=== PATIENT | female | born 1935 | race African-American/Black ===

== ENCOUNTER 2017-08-26 09:56 | Inpatient (IN) | payer OTHER, MEDICAID ==
[~2017-08-26] VITALS: Ht 167.6 cm; Wt 74.4 kg
[~2017-08-26 09:56] MED LIST: AMLO10TA PO; ATEN50TA2 PO; ATOR40TA PO; BENA10TA25 PO; CALC-741 PO; CEFT1PDS43 IV; FAMO-90 PO; HUM SUBQ; LANTUS; LANTUS SUBQ; MYCO250C PO; OMEP40EC1 PO; PRED5SYR3 PO; PROG1 PO; TRAM50TA1 PO
--- NOTE | 2017-08-26 09:56 | NUR ---
Patient BIBA BLS, transferred to bed 10. RN evaluating patient at bedside.
[2017-08-26 10:16] VITALS: BP 137/57
--- NOTE | 2017-08-26 10:47 | NUR ---
Dr. Alicea evaluating patient at bedside.
--- NOTE | 2017-08-26 10:47 | NUR ---
PATIENT PRESENTS TO ED VIA EMS AFTER C/O TO DAUGHTER GENERAL WEAKNESS, UNABLE TO AMBULATE . PT STATES SKIN IS PINK/WARM/DRY; AAOX4 LUNGS CLEAR BL; HR EVEN AND REGULAR; PT DENIES ANY FEVER, CP, SOB, PATIENT STATES PAIN OF 5/10 AT THIS TIME; VSS; PATIENT POSITIONED FOR COMFORT; HOB ELEVATED; BEDRAILS UP X2; BED DOWN. ER MD MADE AWARE OF PT STATUS.
--- NOTE | 2017-08-26 10:51 | NUR ---
MD AT BEDSIDE SPEAKING WITH PT AND DAUGHTER
[2017-08-26] MEDS ORDERED: PRED5TAB7 PO (10:59)
[2017-08-26] MEDS ORDERED: NACL 0.9% 500 ML IV SCH (10:59)
[2017-08-26] MEDS ORDERED: FLONAS NS (10:59)
[2017-08-26] MEDS ORDERED: ALBUTEROL SULFATE/IPRATROPIU 3 ML SOL IH ONE (11:00)
[2017-08-26] MEDS ORDERED: SLIDE SUBQ (11:00)
[2017-08-26] MEDS ORDERED: methylPREDNISolone SS 125 MG in WATER STERILE 2 ML IM ONE (11:00)
[2017-08-26] MEDS ORDERED: LEVOFLOXACIN 500 MG/D5W PREMIX 100 ML IV ONE (11:00)
--- NOTE | 2017-08-26 11:08 | NUR ---
LULY --DAUGHTER [phone]
--- NOTE | 2017-08-26 11:30 | NUR ---
RT AT BEDSIDE--COLLECTED ABG
--- NOTE | 2017-08-26 11:37 | NUR ---
BLOOD COLLECTED AND SENT TO LAB
[2017-08-26 12:24] LABS: HEMATOCRIT 36.9 % (36-48); HEMOGLOBIN 11.9 g/dL (12.0-16.0); MEAN CORPUSCULAR HEMOGLOBIN 27 pg (27-31); MEAN CORPUSCULAR HGB CONC 32 g/dL (33-37); MEAN CORPUSCULAR VOLUME 84 fL (80-94); PLATELET COUNT (AUTO) 185 K/uL (140-450); RED BLOOD CELL COUNT(AUTO) 4.38 MIL/uL (4.20-5.40); RED CELL DISTRIBUTION WIDTH 14.2 % (11.6-13.7); WHITE BLOOD COUNT (AUTO) 9.9 K/uL (4.8-10.8)
[2017-08-26 12:34] LABS: BILIRUBIN,URINE NEGATIVE (NEGATIVE); BLOOD, URINE 3+ (NEGATIVE); COLOR,URINE YELLOW (YELLOW); NITRITE, URINE POSITIVE (NEGATIVE); UGLUCOSE 3+ (NEGATIVE)
[2017-08-26 12:39] LABS: APPEARANCE,URINE CLOUDY (CLEAR)
[2017-08-26 12:41] LABS: RBC,URINE 3-10 (FEW) /HPF (0-5); WBC,URINE 6-15 (FEW) /HPF (0-5)
[2017-08-26 12:42] LABS: LEUKOCYTE ESTERASE ,URINE 1+ (NEGATIVE)
[2017-08-26 12:43] LABS: URINE AMORPHOUS URATE 1+ /HPF (None Seen)
[2017-08-26 12:49] LABS: ALBUMIN 2.3 g/dL (3.4-5.0); ANION GAP 18.2 (8-16); ASPARTATE AMINOTRANSFERASE 10 U/L (15-37); CARBON DIOXIDE 15.4 mmol/L (21-32); CHLORIDE 105 mmol/L (98-107); GLUCOSE 307 mg/dL (74-106); LYMPHOCYTES % (MANUAL) 4 % (20-46); MONOCYTES % (MANUAL) 8 % (5-12); POTASSIUM 4.6 mmol/L (3.5-5.1); SODIUM SERUM 134 mmol/L (136-145); TOTAL BILIRUBIN 0.3 mg/dL (0.0-1.0); UREA NITROGEN, BLOOD 30 mg/dL (7-18)
[2017-08-26] MEDS ORDERED: NACL 0.9% 1,000 ML IV ONE (13:15)
--- NOTE | 2017-08-26 14:00 | NUR ---
PT DENIES PAIN AT THIS TIME---AWAKE ALERT ADMITS SHE FEELS SICK--- PENDING ADMISSION--
[2017-08-26] MEDS: NACL 0.9% 1,000 ML IV SCH ×2 (14:39→21:18)
[2017-08-26] MEDS ORDERED: ACETAMINOPHEN 325 MG TAB PO PRN (14:40)
[2017-08-26] MEDS ORDERED: ALBUTEROL SULFATE/IPRATROPIU 3 ML SOL IH PRN (14:40)
[2017-08-26] MEDS ORDERED: DEXTROSE 50% 50 ML SYR IVP PRN (14:40)
[2017-08-26] MEDS ORDERED: HYDROcodone/APAP 7.5/325 MG 1 TAB PO PRN (14:40)
--- NOTE | 2017-08-26 15:09 | NUR ---
CONTINUES TO WAIT FOR AVAILABLE BED FOR ADMISSION----RESTING WITH OU CLOSED, NO S/S RESP DISTRESS AT THIS TIME
[2017-08-26 15:46] VITALS: BP 161/74
--- NOTE | 2017-08-26 15:59 | NUR ---
Pt transferred to Tele via IVÁN RM 119-B---REPORT GIVEN TO BEAU NAVA PT'S DAUGHTER WAS CALLED AND NOTIFIED OF PT'S CHANGE IN LOCATION
--- NOTE | 2017-08-26 16:00 | NUR ---
RECEIVED PATIENT REPORT AT BEDSIDE FROM ER NURSE. PATIENT IS AAOX3 AND SHOWS NO S/S OF ACUTE DISTRESS ON ROOM AIR. NOTED IV ON THE R FA 20G WITH IVF'S INFUSING WELL. NOTED OLD HEALED SCARS FROM PREVIOUS SURGERIES. BOLTON CATHETER IN PLACE WITH DARK KLEVER URINE. PATIENT DENIES PAIN. PATIENT WAS ORIENTED TO HOSPITAL ENVIRONMENT AND CALL LIGHT IS WITHIN REACH.
[2017-08-26] MEDS ORDERED: hePARIN / DEXT 5% PREMIX 250 ML IV SCH (16:15)
[2017-08-26] MEDS ORDERED: HEPARIN PER PHARMACY MC PRN (16:15)
[2017-08-26 17:07] LABS: CHOL/HDL RATIO 2.7 (1-4.5); FREE T4 (FREE THYROXINE) 1.19 ng/dL (0.76-1.46); MAGNESIUM 1.4 mg/dL (1.8-2.4); PHOSPHORUS 2.9 mg/dL (2.5-4.9); THYROID STIMULATING HORMONE 1.92 uIU/mL (0.34-3.74)
[2017-08-26] MEDS: BLOOD GLUCOSE MONITORING 1 DEV DEV FS SCH ×4 (17:15→23:12)
[2017-08-26] MEDS ORDERED: INSULIN HUMAN REGULAR 100 UNITS in NACL 0.9% 100 ML IV SCH (17:15)
[2017-08-26] MEDS: MYCOPHENOLATE 250 MG CAP PO SCH (17:28)
[2017-08-26] MEDS: INSULIN LISPRO SLIDING SCALE 100 UNITS/ML VIAL SUBQ PRN ×3 (17:32→23:13)
[2017-08-26] MEDS ORDERED: MAG SULF 2000 MG/WATER PREMIX 50 ML IV SCH (17:35)
[2017-08-26] MEDS: CLINDAMYCIN 600 MG in DEXTROSE 5% 50 ML IV SCH (17:44)
--- NOTE | 2017-08-26 17:45 | NUR ---
ADMINISTERED SCHEDULED MEDICATIONS. IV ABX INFUSING WELL. PATIENT BS IS 341, GAVE HUMALOG SLIDING SCALE OF 8 UNITS SQ. PATIENT TOLERATED WELL. PATIENT'S NEEDS MET AT THIS TIME. US TECH AT BEDSIDE.
[2017-08-26] MEDS ORDERED: ALBUTEROL SULFATE/IPRATROPIU 3 ML SOL IH SCH (18:00)
--- NOTE | 2017-08-26 18:00 | NUR ---
TX PATIENT TO ICU WITH DAVID NAVA.
[2017-08-26 18:16] LABS: ANION GAP 19.1 (8-16); CARBON DIOXIDE 15.7 mmol/L (21-32); CHLORIDE 105 mmol/L (98-107); GLUCOSE 375 mg/dL (74-106); POTASSIUM 5.8 mmol/L (3.5-5.1); SODIUM SERUM 134 mmol/L (136-145); UREA NITROGEN, BLOOD 33 mg/dL (7-18)
[2017-08-26 18:20] VITALS: BP 158/76
--- NOTE | 2017-08-26 18:20 | NUR ---
TRANSFERRED IN FROM TELE [facility]. BY TELE RNS DUE TO ELEVATED BS AND ELEVATED TROPONIN. PT IS AWAKE AND ALERT. COOPERATIVE BOLTON CATH INTACT AND PATENT DRAINING TO KLEVER COLORED URINE. DENIES ANY CHEST PAINS NOR SOB. ON RA, 02 SAT 93%. DAMIAN EXT WELL. HAND GRASPS EQUAL. IV INFUSING VIA RT FA IV SITE 0.9 NS AT 250 ML/HR.
--- NOTE | 2017-08-26 18:50 | NUR ---
DR. JUDGE HERE. SPOKE TO PT RE CENTRAL LINE INSERTION. CALLED PT'S DAUGHTER LULY TO INFORM HER RE: CENTRAL LINE INSERTION. PER PT'S DAUGHTER SHE WILL COME HERE TO TALK TO HER MOM AND DR. JUDGE PERSONALLY.
--- NOTE | 2017-08-26 19:08 | NUR ---
SPOKE WITH PATIENTS DAUGHTER LULY [phone] AND NOTIFIED OF PT BEING TX TO ICU.
--- NOTE | 2017-08-26 19:15 | NUR ---
RECEIVED REPORT FORM AM NURSE AT BEDSIDE, PT IS AAOX4, ABLE TO FOLLOW COMMANDS AND MAKE NEEDS KNOWN, DENIES PAIN, VSS. NO S/S OF DISTRESS, DIMINISHED LUNG SOUNDS, O2 AT 2L VIA NC, DENIES CHEST PAIN, SR ON MOBILE MARKETING SPECIALIST, SOFT ABDOMEN WITH HYPOACTIVE BOWEL SOUNDS, BOLTON CATHETER IN PLACE WITH CLEAR YELLOW URINE NOTED, SKIN IS INTACT, WARM AND DRY TO TOUCH, ABLE TO MOVE ALL EXTREMITIES, GENERALIZED WEAKNESS NOTED. IV SITE TO RIGHT FOREARM 20GA, RUNNING NS AT 250ML/HR, DAUGHTER AT BEDSIDE, EXPLAINED POC TO PT AND DAUGHTER, VERBALIZED UNDERSTANDING, HOB ELEVATED 30 DEGREES, SAFETY PRECAUTION IN PLACE, WILL CONTINUE TO MONITOR.
--- NOTE | 2017-08-26 19:20 | NUR ---
DAUGHTER AT BEDSIDE. DR. JUDGE HERE TO EXPLAIN PROCEDURE AGAIN TO DAUGHTER AND PATIENT. CONSENT SIGNED BY PT.
[2017-08-26] MEDS ORDERED: HYDROmorphone PFS 2 MG/ML SYR IVP SCH (19:35)
[2017-08-26 20:00] VITALS: BP 156/80
--- NOTE | 2017-08-26 20:00 | NUR ---
TIME OUT FOR CENTRAL LINE INSERTION, DR. JUDGE WILL PERFORM THE PROCEDURE, US TECH ASSIST.
[2017-08-26] MEDS ORDERED: OSELTAMIVIR PHOSPHATE 75 MG CAP PO SCH (21:00)
[2017-08-26] MEDS: TACROLIMUS 1 MG CAP PO SCH (21:00)
[2017-08-26] MEDS ORDERED: BENAZEPRIL 10 MG TAB PO SCH (21:00)
[2017-08-26] MEDS: INSULIN DETEMIR 100 UNITS/ML 10 ML VIAL SUBQ SCH (21:00)
--- NOTE | 2017-08-26 21:30 | NUR ---
DR. JUDGE WAS NOT ABLE TO INSERT CENTRAL LINE AT THIS TIME, DILAUDID AND HEPARIN LOCK USED DURING THE PROCEDURE.
[2017-08-26] MEDS: DOCUSATE SODIUM 100 MG GELCAP PO SCH (21:44)
--- NOTE | 2017-08-26 21:54 | NUR ---
CLARIFIED WITH DR. JUDGE, HALLE PALENCIA AT THIS TIME DUE TO PT ON INSULIN DRIP Addendum: 08/26/17 at 2224 by Juan Barron RN ACCU CHECK WITH RESULT OF 264MG/DL AT THIS TIME, DR. JUDGE AWARE.
[2017-08-26 22:00] VITALS: BP 140/66
--- NOTE | 2017-08-26 22:20 | NUR ---
PT VOMITED 200ML OF CLEAR YELLOW COLORED EMESIS, ZOFRAN GIVEN.
--- NOTE | 2017-08-26 22:35 | NUR ---
PER JAVA WEB ENGINEER, BRIANDA, NOT CARRY NOVOLIN R IN OUR PHARMACY, PER PHARMACIST, HUMALOG R EQUALIZES NOVOLIN R, DR. JUDGE MADE AWARE.
--- NOTE | 2017-08-26 22:39 | NUR ---
PER DR. JUDGE, HOLD INSULIN DRIP AND RESUME THE LEVEMIR AND SLIDING SCALE DUE TO INSULIN DRIP NOT AVAILABLE AT THIS TIME. Addendum: 08/27/17 at 0323 by Juan Barron RN CONTINUE ACCU CHECK Q1HR
[2017-08-26] MEDS: ONDANSETRON 4 MG/2 ML VIAL IVP PRN (22:57)
--- NOTE | 2017-08-26 23:06 | NUR ---
ACCU CHECK WITH RESULT OF 306MG/DL. DR. JUDGE MADE A GUNN, ORDERED 6 UNITS OF HUMALOG IV PUSH ONCE. Addendum: 08/27/17 at 0323 by Juan Barron RN CHANGED ACCU CHECK TO Q2 HR.
[2017-08-27] VITALS (11 sets, daily range): BP systolic 115–178; BP diastolic 35–91
--- NOTE | 2017-08-27 | NUR ---
PT IS CONFUSED, TRYING TO PULL OUT THE TUBES, REORIENTED PT, PT CLAM DOWN. VSS. DENIES PAIN. POSITION CHANGED FOR OFF LOAD PRESSURE.
[2017-08-27 00:14] LABS: ANION GAP 19.6 (8-16); CARBON DIOXIDE 13.7 mmol/L (21-32); CHLORIDE 107 mmol/L (98-107); CREATININE 2.9 mg/dL (0.6-1.3); GLUCOSE 329 mg/dL (74-106); POTASSIUM 5.3 mmol/L (3.5-5.1); SODIUM SERUM 135 mmol/L (136-145); UREA NITROGEN, BLOOD 36 mg/dL (7-18)
[2017-08-27] MEDS: CLINDAMYCIN 600 MG in DEXTROSE 5% 50 ML IV SCH ×5 (00:18→23:17)
[2017-08-27] MEDS: NACL 0.9% 1,000 ML IV SCH ×6 (00:25→23:30)
[2017-08-27] MEDS ORDERED: BLOOD GLUCOSE MONITORING 1 DEV DEV FS SCH ×3 (01:00→04:00)
--- NOTE | 2017-08-27 01:00 | NUR ---
ACCU CHECKED WITH RESULT OF 352MG/DL, DR. JUDGE MADE AWARE AND ORDERED TO GIVE INSULIN IV PUSH 6 UNITS PER SLIDING SCARE
[2017-08-27] MEDS: INSULIN LISPRO SLIDING SCALE 100 UNITS/ML VIAL SUBQ PRN ×5 (01:20→21:06)
[2017-08-27] MEDS ORDERED: INSULIN LISPRO 100 UNITS/ML VIAL SUBQ ONE ×2 (03:54→03:55)
[2017-08-27] MEDS: BLOOD GLUCOSE MONITORING 1 DEV DEV FS SCH ×9 (03:57→21:02)
--- NOTE | 2017-08-27 04:00 | NUR ---
ACCU CHECK WITH RESULT OF 171MG/DL, DR. JUDGE MADE AWARE, WILL CARRY OUT THE NEW ORDERS.
[2017-08-27 04:15] LABS: ANION GAP 18.3 (8-16); CARBON DIOXIDE 15.6 mmol/L (21-32); CHLORIDE 109 mmol/L (98-107); CREATININE 2.7 mg/dL (0.6-1.3); GLUCOSE 197 mg/dL (74-106); POTASSIUM 4.9 mmol/L (3.5-5.1); SODIUM SERUM 138 mmol/L (136-145); UREA NITROGEN, BLOOD 36 mg/dL (7-18)
--- NOTE | 2017-08-27 05:00 | NUR ---
ACCU CHECK WITH RESULT OF 158MG/DL, DR. JUDGE MADE AWARE, NO CHANGE OF ORDER AT THIS TIME.
[2017-08-27] MEDS: DEXT 5% / NACL 0.45% 1,000 ML IV SCH ×2 (05:29→09:29)
--- NOTE | 2017-08-27 06:15 | NUR ---
HHN CHANGED TO Q4PRN NO TX GIVEN DUE TO PT SLEEPING
--- NOTE | 2017-08-27 06:38 | NUR ---
CRITICAL APTT OVER 150 PER LAB, AND HEMATURIA NOTED, DR. JUDGE NOTIFIED, HOLD HEPARIN DRIP UNTIL FURTHER ORDER.
--- NOTE | 2017-08-27 07:12 | NUR ---
REPORT GIVEN TO ELIJAH MUNIZ AT BEDSIDE FOR CONTINUE OF CARE, PT IS IN STABLE CONDITION AT THIS TIME. VSS.
--- NOTE | 2017-08-27 07:20 | NUR ---
REPORT RECEIVED FROM NIGHT NURSE. PT IS AAOX3. ABLE TO FOLLOW COMMANDS AND MAKE NEEDS KNOWN. NO S/O PAIN OR DISCOMFORT. NSR ON MONITOR. ON O2 AT 2 LPM/NC. NO SOB NOTED. DIMINISHED LUNG SOUNDS. ABDOMEN SOFT, NONTENDER, WITH HYPOACTIVE BOWEL SOUNDS. PERIPHERAL IV G20 TO RIGHT FOREARM PATENT AND INTACT. PT IS ON BOLTON CATH, DRAINING URINE TO GRAVITY DRAINAGE BAG. SCDS IN PLACE FOR VTE PROPHYLAXIS. SKIN IS WARM TO TOUCH AND DRY. ABLE TO MOVE ALL EXTREMITIES. HOB 30 DEGREES AND BED IN LOW POSITION. CALL LIGHT WITHIN REACH. WILL CONTINUE TO MONITOR.
[2017-08-27 07:55] LABS: HEMATOCRIT 33.8 % (36-48); HEMOGLOBIN 10.5 g/dL (12.0-16.0); MEAN CORPUSCULAR HEMOGLOBIN 26 pg (27-31); MEAN CORPUSCULAR HGB CONC 31 g/dL (33-37); MEAN CORPUSCULAR VOLUME 85 fL (80-94); PLATELET COUNT (AUTO) 208 K/uL (140-450); RED CELL DISTRIBUTION WIDTH 14.2 % (11.6-13.7); WHITE BLOOD COUNT (AUTO) 14.6 K/uL (4.8-10.8)
[2017-08-27 08:35] LABS: BASOPHILS % (MANUAL) 0 % (0-2); EOSINOPHILS % (MANUAL) 0 % (0-4); LYMPHOCYTES % (MANUAL) 3 % (20-46); MONOCYTES % (MANUAL) 2 % (5-12)
[2017-08-27 09:16] LABS: ANION GAP 15.8 (8-16); CARBON DIOXIDE 14.2 mmol/L (21-32); CHLORIDE 110 mmol/L (98-107); CREATININE 2.8 mg/dL (0.6-1.3); GLUCOSE 199 mg/dL (74-106); SODIUM SERUM 135 mmol/L (136-145); UREA NITROGEN, BLOOD 34 mg/dL (7-18)
--- NOTE | 2017-08-27 10:30 | NUR ---
ADMINISTERED MEDICATIONS. PT TOLERATED WELL.
[2017-08-27] MEDS: BENAZEPRIL 20 MG TAB PO SCH ×2 (10:41→21:02)
[2017-08-27] MEDS: ATORVASTATIN 20 MG TAB PO SCH (10:42)
[2017-08-27] MEDS: LACTOBACILLUS RHAMNOSUS GG 1 EACH CAP PO SCH (10:42)
[2017-08-27] MEDS: DOCUSATE SODIUM 100 MG GELCAP PO SCH ×2 (10:42→21:02)
[2017-08-27] MEDS: ASCORBIC ACID 500 MG TAB PO SCH (10:42)
[2017-08-27] MEDS: ATENOLOL 50 MG TAB PO SCH (10:42)
[2017-08-27] MEDS: FERROUS SULFATE 325 MG TABEC PO SCH (10:43)
[2017-08-27] MEDS: predniSONE 5 MG TAB PO SCH (10:43)
[2017-08-27] MEDS: amLODIPine 5 MG TAB PO SCH (10:48)
[2017-08-27] MEDS ORDERED: PROBIOTIC SCREEN 1 EA MISC MC PRN (11:25)
[2017-08-27 11:36] LABS: ANION GAP 15.8 (8-16); CARBON DIOXIDE 15.1 mmol/L (21-32); CHLORIDE 109 mmol/L (98-107); CREATININE 2.7 mg/dL (0.6-1.3); GLUCOSE 186 mg/dL (74-106); POTASSIUM 4.9 mmol/L (3.5-5.1); SODIUM SERUM 135 mmol/L (136-145); UREA NITROGEN, BLOOD 34 mg/dL (7-18)
--- NOTE | 2017-08-27 11:40 | NUR ---
DR. HIGH AND RESIDENT GROUP IN TO SEE PT. WILL FOLLOW UP ON ORDERS.
[2017-08-27] MEDS: TACROLIMUS 1 MG CAP PO SCH ×2 (12:49→21:03)
[2017-08-27] MEDS: MYCOPHENOLATE 250 MG CAP PO SCH ×3 (12:49→17:04)
[2017-08-27] MEDS: SODIUM PHOS / POTASSIUM PHOS 1 PKT PDR PO SCH ×2 (12:49→17:04)
--- NOTE | 2017-08-27 13:10 | NUR ---
DR. RODARTE IN TO SEE PT. WILL FOLLOW UP WITH NEW ORDERS.
--- NOTE | 2017-08-27 13:15 | NUR ---
DR. SAGASTUME IN TO SEE AND EXAMINE PT. WILL FOLLOW UP ON ORDERS.
--- NOTE | 2017-08-27 14:15 | NUR ---
SMALL AMOUNT OF BLOODY STOOL NOTED. VSS. NO C/ O PAIN. DR. THORPE MADE AWARE. WILL FOLLOW UP ON ORDERS.
[2017-08-27 14:31] LABS: BARBITURATE, URINE NEG. ng/ml (NEG <=200); BENZODIAZEPINE, URINE NEG. ng/mL (NEG <=200); CANNABINOID, URINE NEG. ng/mL (NEG <=50); COCAINE, URINE NEG. ng/mL (NEG <=300); OPIATE, URINE NEG. ng/mL (NEG <=2000); PHENCYCLIDINE SCREEN,URINE NEG. ng/mL (NEG <=25)
--- NOTE | 2017-08-27 15:10 | NUR ---
DAUGHTER AT BEDSIDE. PT IS STABLE. NO ACUTE DISTRESS NOTED. SAFETY PRECAUTIONS IN PLACE.
[2017-08-27 15:26] LABS: HEMATOCRIT 32.7 % (36-48); HEMOGLOBIN 10.1 g/dL (12.0-16.0); MEAN CORPUSCULAR HEMOGLOBIN 27 pg (27-31); MEAN CORPUSCULAR HGB CONC 31 g/dL (33-37); MEAN CORPUSCULAR VOLUME 85 fL (80-94); PLATELET COUNT (AUTO) 193 K/uL (140-450); RED BLOOD CELL COUNT(AUTO) 3.83 MIL/uL (4.20-5.40); RED CELL DISTRIBUTION WIDTH 14.1 % (11.6-13.7); WHITE BLOOD COUNT (AUTO) 15.8 K/uL (4.8-10.8)
[2017-08-27 15:47] LABS: LYMPHOCYTES % (MANUAL) 1 % (20-46); MONOCYTES % (MANUAL) 6 % (5-12)
[2017-08-27] MEDS ORDERED: guaiFENesin/CODEINE 100/10MG 5 ML UDC PO PRN (16:55)
--- NOTE | 2017-08-27 17:03 | NUR ---
DR. THORPE MADE AWARE OF PT'S INTERMITTANT, NON-PRODUCTIVE COUGH. ORDER RECEIVED.
--- NOTE | 2017-08-27 18:20 | NUR ---
NO CHANGE OF CONDITION AT THIS TIME. VITAL SIGNS STABLE. DENIES PAIN. NO ACUTE DISTRESS NOTED. WILL CONTINUE TO MONITOR.
--- NOTE | 2017-08-27 19:27 | NUR ---
REPORT GIVEN TO CABLE WORKER HELPER NURSE FOR CONTINUITY OF CARE. PT IS IN STABLE CONDITION.
--- NOTE | 2017-08-27 19:28 | NUR ---
RECEIVED REPORT FORM ELIJAH MUNIZ AT BEDSIDE, PT IS AAOX4, ABLE TO FOLLOW COMMANDS AND MAKE NEEDS KNOWN, DENIES PAIN, VSS. NO S/S OF DISTRESS, DIMINISHED LUNG SOUNDS, O2 AT 2L VIA NC, DENIES CHEST PAIN, SR ON AWS CONSULTANT, SOFT ABDOMEN WITH HYPOACTIVE BOWEL SOUNDS, BOLTON CATHETER IN PLACE WITH RED URINE NOTED, SKIN IS INTACT, WARM AND DRY TO TOUCH, ABLE TO MOVE ALL EXTREMITIES, GENERALIZED WEAKNESS NOTED. IV SITE TO RIGHT FOREARM 20GA, RUNNING NS AT 125ML/HR, HOB ELEVATED 30 DEGREES, SAFETY PRECAUTION IN PLACE, WILL CONTINUE TO MONITOR.
--- NOTE | 2017-08-27 21:00 | NUR ---
SCHEDULED MEDICATION GIVEN, PT IS ABLE TO SWALLOW PILLS WHOLE, NO ADVERSE EFFECTS NOTED.
[2017-08-27] MEDS: INSULIN DETEMIR 100 UNITS/ML 10 ML VIAL SUBQ SCH (21:04)
[2017-08-27 21:10] LABS: PROTHROMBIN TIME 9.3 secs (10.8-13.4)
[2017-08-28] VITALS: BP 141/64
--- NOTE | 2017-08-28 | NUR ---
PT IS STILL AWAKE, NO S/S OF DISTRESS, VSS, POSITION CHANGED FOR OFF LOAD PRESSURE.
--- NOTE | 2017-08-28 01:20 | NUR ---
PT TRANSFERRED TO ROOM 121A VIA BED, ALL BELONGS GOES WITH PT, NO INCIDENT OCCUR, PT IS IN STABLE CONDITION, VSS, REPORT GIVEN TO ELIJAH LEE AT BEDSIDE FOR CONTINUE OF CARE.
--- NOTE | 2017-08-28 01:30 | NUR ---
PT ARRIVED TO UNIT VIA GURNEY. RECEIVED REPORT AT BEDSIDE FROM LIGHT RAIL TRANSIT OPERATOR. PT A/OX4, BUT ICU NURSE REPORTED CONFUSION AT TIMES, ON 2L O2 VIA NASAL CANNULA. 18G IV TO RIGHT FA. SKIN INTACT. BOLTON CATHETER IN PLACE. SAFETY PRECAUTIONS IN PLACE. UPDATED BOARD. VITAL SIGNS WITHIN NORMAL LIMITS. PT IN STABLE CONDITION, NO SIGNS OF DISTRESS NOTED. BED IN LOW POSITION, CALL LIGHT WITHIN REACH. WILL CONTINUE TO MONITOR.
--- NOTE | 2017-08-28 03:30 | NUR ---
PT HAD A BM, IT LOOKED LIKE BLOODY DIARRHEA. PT IS IN STABLE CONDITION. WILL CONTINUE TO MONITOR.
[2017-08-28 04:00] VITALS: BP 150/114
[2017-08-28] MEDS ORDERED: ENALAPRILAT 2.5 MG/2 ML VIAL IVP ONE (04:40)
--- NOTE | 2017-08-28 04:41 | NUR ---
PT BP 150/114. SPOKE TO DR JUDGE ABOUT BP, DR NORRIS ORDER IV VASOTEC.
[2017-08-28] MEDS: CLINDAMYCIN 600 MG in DEXTROSE 5% 50 ML IV SCH ×2 (06:00→12:00)
[2017-08-28 06:48] LABS: BASOPHILS # (AUTO) 0.2 K/uL (0.00-0.22); BASOPHILS % (AUTO) 1.1 % (0.0-2.0); EOSINOPHILS % (AUTO) 0.2 % (0.0-4.0); HEMATOCRIT 32.4 % (36-48); HEMOGLOBIN 10.1 g/dL (12.0-16.0); LYMPHOCYTES # (AUTO) 0.6 K/uL (2.5-16.5); LYMPHOCYTES % (AUTO) 3.8 % (20.5-51.1); MEAN CORPUSCULAR HEMOGLOBIN 26 pg (27-31); MEAN CORPUSCULAR HGB CONC 31 g/dL (33-37); MEAN CORPUSCULAR VOLUME 84 fL (80-94); MONOCYTES # (AUTO) 0.4 K/uL (0.8-1.0); MONOCYTES % (AUTO) 2.5 % (1.7-9.3); NEUTROPHILS # (AUTO) 14.5 K/uL (1.8-7.7); NEUTROPHILS % (AUTO) 92.4 % (42.2-75.2); PLATELET COUNT (AUTO) 250 K/uL (140-450); RED BLOOD CELL COUNT(AUTO) 3.85 MIL/uL (4.20-5.40); RED CELL DISTRIBUTION WIDTH 14.9 % (11.6-13.7); WHITE BLOOD COUNT (AUTO) 15.7 K/uL (4.8-10.8)
--- NOTE | 2017-08-28 07:28 | NUR ---
TOOK BLOOD SUGAR AND IT WAS 48. GOT DEXTROSE WATER FOR IV PUSH. IV ON PT WAS INFILTRATED, HAVE BEEN TRYING TO INSERT NEW IV FOR ABOUT 1 HR, DIFFERENT NURSES HAVE TRIED AND NO ONE CAN START A GOOD IV. OPENED DEXTROSE TO HAVE READY WHEN IV WAS STARTED BUT IT STARTED TAKING TOO LONG, GAVE PT APPLE JUICE WITH SUGAR IN IT. CHECKED BLOOD SUGAR AGAIN 2 MORE TIMES, IT WAS 63 AND 65. WILL ENDORSE IV START AND DEXTROSE IVP TO DAY SHIFT NURSE. PT IN STABLE CONDITION, NO SIGNS OF DISTRESS NOTED. BED IN LOW POSITION, CALL LIGHT WITHIN REACH. WILL CONTINUE TO MONITOR.
--- NOTE | 2017-08-28 07:30 | NUR ---
ASSUMED CONTINUITY OF CARE. NO SIGNS AND SYMPTOMS OF ACUTE DISTRESS NOTICED. INITIAL ASSESSMENT DONE. NO IV ACCESS. TRIED IV INSERTION BUT WAS UNSUCCESSFUL. KEEP COMFORTABLE ON BED. FALL PRECAUTION APPLIED. CALL LIGHT WITHIN REACH.
--- NOTE | 2017-08-28 07:34 | NUR ---
ENDORSED PT TO DAY SHIFT NURSE FOR CONTINUITY OF CARE. PT IN STABLE CONDITION. ALSO ENDORSED IV INSERTION AND THE DEXTROSE INJECTION IVP (ACTUAL BOX WITH MEDICATION PULLED FROM [employer]).
[2017-08-28 07:36] LABS: ANION GAP 18.8 (8-16); CARBON DIOXIDE 13.6 mmol/L (21-32); CHLORIDE 112 mmol/L (98-107); CREATININE 2.6 mg/dL (0.6-1.3); GLUCOSE 58 mg/dL (74-106); POTASSIUM 4.4 mmol/L (3.5-5.1); SODIUM SERUM 140 mmol/L (136-145); UREA NITROGEN, BLOOD 35 mg/dL (7-18)
[2017-08-28 07:47] LABS: MAGNESIUM 1.7 mg/dL (1.8-2.4); PHOSPHORUS 3.3 mg/dL (2.5-4.9)
[2017-08-28 08:00] VITALS: BP 154/77
[2017-08-28] MEDS: BLOOD GLUCOSE MONITORING 1 DEV DEV FS SCH ×4 (08:14→20:54)
--- NOTE | 2017-08-28 08:30 | NUR ---
INFORMED DR. THORPE THAT PT. DIDN'T HAVE IV ACCESS AND IV INSERTION TRIED SO MANY TIMES AND CAN'T FIND ONE WITH ASSISTANCE FROM OTHER NURSES. ALSO INFORMED DR. THORPE OF PT. BLOOD IN STOOL, AND PT. HAVE CLEOCIN 600 MG IVPB Q6 AND LEVAQUIN 500 MG IVPB Q24.
[2017-08-28] MEDS: FERROUS SULFATE 325 MG TABEC PO SCH (08:43)
--- NOTE | 2017-08-28 08:58 | NUR ---
PATIENT HAS BEEN SCREENED AND CATEGORIZED HIGH NUTRITION RISK. PATIENT WILL BE SEEN IN 1-2 DAYS. 08/27/17-08/28/[address]
[2017-08-28] MEDS: ATORVASTATIN 20 MG TAB PO SCH (09:27)
[2017-08-28] MEDS: predniSONE 5 MG TAB PO SCH (09:28)
[2017-08-28] MEDS: MYCOPHENOLATE 250 MG CAP PO SCH ×3 (09:28→17:38)
[2017-08-28] MEDS: BENAZEPRIL 20 MG TAB PO SCH ×2 (09:28→20:54)
[2017-08-28] MEDS: ATENOLOL 50 MG TAB PO SCH (09:28)
[2017-08-28] MEDS: SODIUM PHOS / POTASSIUM PHOS 1 PKT PDR PO SCH ×3 (09:29→17:38)
[2017-08-28] MEDS: amLODIPine 5 MG TAB PO SCH (09:29)
[2017-08-28] MEDS: LACTOBACILLUS RHAMNOSUS GG 1 EACH CAP PO SCH (09:29)
[2017-08-28] MEDS: ASCORBIC ACID 500 MG TAB PO SCH (09:29)
[2017-08-28] MEDS: TACROLIMUS 0.5 MG CAP PO SCH ×2 (10:01→20:51)
--- NOTE | 2017-08-28 10:40 | NUR ---
INFORMED DR. THORPE ABOUT PT. MAG 1.7. PER DR. THORPE, SHE WILL TAKE CARE OF IT. INFORMED CHARGE NURSE TRISTIAN ALSTON.
[2017-08-28] MEDS: DEXT 5% /NACL 0.9% 1,000 ML IV SCH (11:05)
--- NOTE | 2017-08-28 11:15 | NUR ---
INSERTED IV WITH ASSISTANCE FROM CHARGE NURSE TRISTIAN FRITZ -ELIJAH. TRIED 5 TIMES AND STILL CAN'T FIND IV ACCESS. INFORMED DR. THORPE THAT PT. STILL DON'T HAVE IV ACCESS AND PT. HAVE CLEOCIN IVPB AND LEVAQUIN IVPB SCHEDULED AT 1200.
[2017-08-28 12:00] VITALS: BP 147/70
[2017-08-28] MEDS ORDERED: LEVOFLOXACIN 500 MG/D5W PREMIX 100 ML IV SCH (12:00)
--- NOTE | 2017-08-28 13:45 | NUR ---
ALAN ALSTON TRIED IV INSERTION BUT WAS UNSUCCESSFUL. INFORMED CHARGE NURSE TRISTIAN ALSTON.
--- NOTE | 2017-08-28 13:53 | NUR ---
DR. CHEN CAME, REVIEWED PT. CHART. INFORMED DR. THORPE.
[2017-08-28] MEDS ORDERED: LEVOFLOXACIN 500 MG TAB PO SCH (14:15)
--- NOTE | 2017-08-28 14:43 | NUR ---
INFORMED DR. THORPE THAT DR. CHEN ORDERED FLAGYL IV, BUT PT. DIDN'T HAVE IV ACCESS.
[2017-08-28 16:00] VITALS: BP 156/79
--- NOTE | 2017-08-28 16:02 | NUR ---
DR. GUILLAUME TRIED TO INSERT IV WITH PORTABLE ULTRASOUND. PT. TOLERATED WELL.
[2017-08-28] MEDS ORDERED: LIDOCAINE 1% 500 MG/50 ML VIAL INJ SCH (16:05)
--- NOTE | 2017-08-28 16:35 | NUR ---
DR. GUILLAUME WAS UNSUCCESSFUL GETTING IV ACCESS. INFORMED CHARGE NURSE TRISTIAN ALSTON.
--- NOTE | 2017-08-28 16:45 | NUR ---
CALLED COUNTY HOME DEMONSTRATOR -AUGUSTINA AND INFORMED MD ORDER FOR PT. PICC LINE INSERTION 08/29/17 AT 0800. INFORMED CHARGE NURSE TRISTIAN ALSTON.
--- NOTE | 2017-08-28 16:48 | NUR ---
PLEASE REFER TO NUTRITION ASSESSMENT UNDER CARE ACTIVITY FOR ESTIMATED NUTRITIONAL NEEDS. 1.CONTINUE NPO STATUS MEDICALL APPROPRIATE. 2.CONSIDER ADVANCING DIET TO 60 GM CCHO WHEN PT ABLE TO TOLERATE 3.RD TO FOLLOW-UP IN 3-5 DAYS PATIENT IS MODERATE RISK. ANU ADAMES, RD
--- NOTE | 2017-08-28 19:12 | NUR ---
BEDSIDE REPORT GIVEN TO ANN-MARIE LOVETT -ELIJAH. IN STABLE CONDITION. PT. DAUGHTER -LULY ON BEDSIDE.
--- NOTE | 2017-08-28 19:13 | NUR ---
RECEIVED REPORT AT BEDSIDE FROM DAY SHIFT NURSE. PT A/OX4, WITH CONFUSION AT TIMES, ON 2L O2 VIA NASAL CANNULA. SKIN INTACT. SAFETY PRECAUTIONS IN PLACE. UPDATED BOARD. VITAL SIGNS WITHIN NORMAL LIMITS. PT IN STABLE CONDITION, NO SIGNS OF DISTRESS NOTED. BED IN LOW POSITION, CALL LIGHT WITHIN REACH. WILL CONTINUE TO MONITOR.
--- NOTE | 2017-08-28 20:45 | NUR ---
ASKED DR JUDGE IF OK TO GIVE PT HUMALIN AND HUMALOG SINCE PT HAS NO IV ACCESS AND BLOOD SUGAR THIS MORNING WAS 48, BUT AT THIS MOMENT ITS 202. DR JUDGE SAID OK TO GIVE JUST CHECK BLOOD SUGAR AGAIN BEFORE 6AM, AROUND MIDNIGHT. Addendum: 08/29/17 at 0515 by Stephanie Garvey RN ASKED ABOUT LEVEMIR AND HUMALOG, NOT HUMALIN. DR JUDGE SAID IT WAS OK TO GIVE.
[2017-08-28] MEDS: INSULIN DETEMIR 100 UNITS/ML 10 ML VIAL SUBQ SCH (20:47)
[2017-08-28] MEDS: INSULIN LISPRO SLIDING SCALE 100 UNITS/ML VIAL SUBQ PRN (20:48)
--- NOTE | 2017-08-28 20:50 | NUR ---
ADMINISTERED SCHEDULED MEDICATIONS ORDERED, PT TOLERATED WELL.
[2017-08-28] MEDS: SODIUM BICARBONATE 650 MG TAB PO SCH (20:53)
[2017-08-28] MEDS ORDERED: metroNIDAZOLE 250 MG/NS PREMIX 50 ML IV SCH (21:00)
[2017-08-28 21:13] VITALS: BP 141/77
[2017-08-29] VITALS: BP 140/70
[2017-08-29] MEDS: DEXT 5% /NACL 0.9% 1,000 ML IV SCH ×2 (00:25→14:54)
--- NOTE | 2017-08-29 01:45 | NUR ---
PT BLOOD SUGAR IS 89, GAVE PT SOME APPLE JUICE. PT STABLE.
[2017-08-29 04:00] VITALS: BP 145/72
--- NOTE | 2017-08-29 04:00 | NUR ---
VITAL SIGNS WITHIN NORMAL LIMITS. PT IN STABLE CONDITION, NO SIGNS OF DISTRESS NOTED. BED IN LOW POSITION, CALL LIGHT WITHIN REACH. WILL CONTINUE TO MONITOR.
--- NOTE | 2017-08-29 05:13 | NUR ---
ASKED ABOUT LEVEMIR AND HUMALOG, NOT HUMALIN. Addendum: 08/29/17 at 0514 by Stephanie Garvey RN DISREGARD, WRONG NOTE.
--- NOTE | 2017-08-29 06:30 | NUR ---
PT BLOOD SUGAR 31, SPOKE WITH DR JUDGE AND DR THORPE. PT REFUSES TO DRINK JUICE OR SUGAR WATER AND PT HAS NO IV ACCESS. DR THORPE TRIED CONVINCING PT TO DRINK JUICE, PT REFUSES. WILL ORDER ORAL GLUCOSE.
[2017-08-29] MEDS ORDERED: DEXTROSE 4 GM TAB.CHEW PO PRN (06:35)
[2017-08-29] MEDS ORDERED: DEXTROSE ORAL 15 GM TUBE PO ONE (06:35)
--- NOTE | 2017-08-29 06:50 | NUR ---
PHARMACY WOULD NOT MERCURY CRACKING TESTER TO VERIFY ORAL GLUCOSE ORDER. USED PYXIS OVERRIDE AND PUT REASON ON THERE. GAVE ORAL GLUCOSE TO PT, PT SWALLOWED ALL OF IT. PT TOLERATED WELL. WILL RE-CHECK BLOOD SUGAR.
--- NOTE | 2017-08-29 07:15 | NUR ---
PT BLOOD SUGAR IS NOW 48. ENDORSED PT TO DAY SHIFT NURSE FOR CONTINUITY OF CARE. PT STABLE, NO SIGNS OF DISTRESS NOTED. PT ALERT, NO LETHARGY NOTED.
--- NOTE | 2017-08-29 07:16 | NUR ---
ASSUMED CONTINUITY OF CARE. NO SIGNS AND SYMPTOMS OF ACUTE DISTRESS NOTED. INITIAL ASSESSMENT DONE. KEEP COMFORTABLE ON BED. RE-ORIENTED TO EVENTS AND SURROUNDINGS. FALL PRECAUTION APPLIED. CALL LIGHT WITHIN REACH.
[2017-08-29] MEDS: BLOOD GLUCOSE MONITORING 1 DEV DEV FS SCH ×4 (07:33→20:50)
--- NOTE | 2017-08-29 07:56 | NUR ---
DR. THORPE TOLD NOT TO GIVE 0900 DOSE OF HEPARIN SODIUM 5000 UNITS SUB-Q TO PT..
[2017-08-29 08:00] VITALS: BP 132/57
[2017-08-29] MEDS ORDERED: DEXTROSE ORAL 15 GM TUBE PO PRN (08:25)
[2017-08-29] MEDS: metroNIDAZOLE 500 MG TAB PO SCH ×2 (08:35→14:17)
[2017-08-29] MEDS: ASCORBIC ACID 500 MG TAB PO SCH (08:35)
[2017-08-29] MEDS: BENAZEPRIL 20 MG TAB PO SCH ×2 (08:35→20:53)
[2017-08-29] MEDS: FERROUS SULFATE 325 MG TABEC PO SCH (08:35)
[2017-08-29] MEDS: amLODIPine 5 MG TAB PO SCH (08:36)
[2017-08-29] MEDS: ATENOLOL 50 MG TAB PO SCH (08:36)
[2017-08-29] MEDS: MYCOPHENOLATE 250 MG CAP PO SCH ×3 (08:36→17:14)
[2017-08-29] MEDS: ATORVASTATIN 20 MG TAB PO SCH (08:37)
[2017-08-29] MEDS: LACTOBACILLUS RHAMNOSUS GG 1 EACH CAP PO SCH (08:37)
[2017-08-29] MEDS: SODIUM BICARBONATE 650 MG TAB PO SCH ×2 (08:37→20:53)
[2017-08-29] MEDS: predniSONE 5 MG TAB PO SCH (08:37)
[2017-08-29] MEDS: SODIUM PHOS / POTASSIUM PHOS 1 PKT PDR PO SCH ×3 (08:37→17:14)
[2017-08-29] MEDS: TACROLIMUS 0.5 MG CAP PO SCH ×2 (08:38→20:51)
[2017-08-29] MEDS ORDERED: metroNIDAZOLE 250 MG TAB PO SCH (09:00)
[2017-08-29 09:10] LABS: BASOPHILS % (AUTO) 0.6 % (0.0-2.0); EOSINOPHILS % (AUTO) 0.1 % (0.0-4.0); HEMATOCRIT 32.9 % (36-48); HEMOGLOBIN 10.2 g/dL (12.0-16.0); LYMPHOCYTES # (AUTO) 0.3 K/uL (2.5-16.5); LYMPHOCYTES % (AUTO) 4.6 % (20.5-51.1); MEAN CORPUSCULAR HEMOGLOBIN 26 pg (27-31); MEAN CORPUSCULAR HGB CONC 31 g/dL (33-37); MEAN CORPUSCULAR VOLUME 84 fL (80-94); MONOCYTES # (AUTO) 0.5 K/uL (0.8-1.0); MONOCYTES % (AUTO) 7.7 % (1.7-9.3); NEUTROPHILS # (AUTO) 6.3 K/uL (1.8-7.7); PLATELET COUNT (AUTO) 172 K/uL (140-450); RED BLOOD CELL COUNT(AUTO) 3.95 MIL/uL (4.20-5.40); RED CELL DISTRIBUTION WIDTH 14.6 % (11.6-13.7)
[2017-08-29 09:11] LABS: ANION GAP 16.4 (8-16); CARBON DIOXIDE 15.9 mmol/L (21-32); CHLORIDE 113 mmol/L (98-107); CREATININE 2.5 mg/dL (0.6-1.3); GLUCOSE 61 mg/dL (74-106); POTASSIUM 4.3 mmol/L (3.5-5.1); SODIUM SERUM 141 mmol/L (136-145)
[2017-08-29 09:15] LABS: MAGNESIUM 1.6 mg/dL (1.8-2.4); PHOSPHORUS 3.7 mg/dL (2.5-4.9)
--- NOTE | 2017-08-29 09:21 | NUR ---
BLOOD SUGAR LEVEL 102 AT THIS TIME. AWAKE, ALERT, AND ORIENTED X3. NO ACUTE DISTRESS NOTED.
--- NOTE | 2017-08-29 09:47 | NUR ---
COLLECTED STOOL SPECIMEN FOR C-DIFF AND SEND TO LAB. LABORATORY STAFF REJECTED STOOL SPECIMEN DUE TO CRITERIA. INFORMED CHARGE NURSE TRISTIAN ALSTON.
[2017-08-29] MEDS ORDERED: guaiFENesin/CODEINE 100/10MG 5 ML UDC PO PRN (10:10)
[2017-08-29 10:22] LABS: WHITE BLOOD COUNT (AUTO) 7.1 K/uL (4.8-10.8)
[2017-08-29 10:30] LABS: UREA NITROGEN, BLOOD 31 mg/dL (7-18)
[2017-08-29 11:31] LABS: PROTHROMBIN TIME 10.4 secs (10.8-13.4)
--- NOTE | 2017-08-29 11:55 | NUR ---
DR. CHEN CAME, REVIEWED PT. CHART, SEEN PT., AND SPOKE TO PT. DAUGHTER AT BEDSIDE.
[2017-08-29 12:00] VITALS: BP 145/74
--- NOTE | 2017-08-29 12:45 | NUR ---
PICC LINE RN CAME FOR PT. PICC LINE INSERTION.
--- NOTE | 2017-08-29 13:35 | NUR ---
PICC LINE INSERTION DON AT THIS TIME. PT. RESTING ON BED. NO DISCOMFORT NOTED. PER PICC LINE NURSE -NEISHA, PICC LINE WAS OK TO USE NOW. INFORMED DR. THORPE THAT PT. PICC LINE WAS ALREADY INSERTED AND IT'S OK TO USE.
[2017-08-29] MEDS ORDERED: MAGNESIUM OXIDE 400 MG TAB PO SCH (14:00)
[2017-08-29 16:00] VITALS: BP 145/72
--- NOTE | 2017-08-29 19:12 | NUR ---
BEDSIDE REPORT GIVEN TO ANN-MARIE ALSTON. IVF INFUSING WELL. IN STABLE CONDITION.
--- NOTE | 2017-08-29 19:13 | NUR ---
RECEIVED REPORT AT BEDSIDE FROM DAY SHIFT NURSE. PT A/OX4, WITH CONFUSION AT TIMES, ON ROOM AIR. SKIN INTACT. SAFETY PRECAUTIONS IN PLACE. UPDATED BOARD. VITAL SIGNS WITHIN NORMAL LIMITS. PT IN STABLE CONDITION, NO SIGNS OF DISTRESS NOTED. BED IN LOW POSITION, CALL LIGHT WITHIN REACH. WILL CONTINUE TO MONITOR.
--- NOTE | 2017-08-29 20:56 | NUR ---
ADMINISTERED SCHEDULED MEDICATION, PT TOLERATED WELL. PT IN STABLE CONDITION, NO SIGNS OF DISTRESS NOTED. BED IN LOW POSITION, CALL LIGHT WITHIN REACH. WILL CONTINUE TO MONITOR.
[2017-08-29] MEDS ORDERED: metroNIDAZOLE 250 MG/NS PREMIX 50 ML IV SCH (21:00)
[2017-08-29] MEDS ORDERED: INSULIN DETEMIR 100 UNITS/ML 10 ML VIAL SUBQ SCH (21:00)
--- NOTE | 2017-08-29 21:35 | NUR ---
ADMINISTERED INSULIN PER ORDER, PT TOLERATED WELL.
[2017-08-29] MEDS: INSULIN LISPRO SLIDING SCALE 100 UNITS/ML VIAL SUBQ PRN (21:38)
[2017-08-29 22:52] VITALS: BP 150/74
--- NOTE | 2017-08-30 00:16 | NUR ---
VITAL SIGNS WITHIN NORMAL LIMITS, EXCEPT WITH SBP AT 150. PT IN STABLE CONDITION, NO SIGNS OF DISTRESS NOTED. BED IN LOW POSITION, CALL LIGHT WITHIN REACH. WILL CONTINUE TO MONITOR.
[2017-08-30] MEDS: DEXT 5% /NACL 0.9% 1,000 ML IV SCH (03:05)
[2017-08-30] MEDS ORDERED: LEVOFLOXACIN 500 MG TAB PO SCH (09:00)
[2017-08-30 10:53] LABS: ANION GAP 14.5 (8-16); CARBON DIOXIDE 16.2 mmol/L (21-32); CHLORIDE 117 mmol/L (98-107); CREATININE 2.4 mg/dL (0.6-1.3); GLUCOSE 235 mg/dL (74-106); MAGNESIUM 1.5 mg/dL (1.8-2.4); PHOSPHORUS 2.9 mg/dL (2.5-4.9); POTASSIUM 4.7 mmol/L (3.5-5.1); SODIUM SERUM 143 mmol/L (136-145); UREA NITROGEN, BLOOD 27 mg/dL (7-18)
[2017-08-30] MEDS: BLOOD GLUCOSE MONITORING 1 DEV DEV FS SCH (11:30)
[2017-08-30] MEDS: TACROLIMUS 0.5 MG CAP PO SCH (11:44)
[2017-08-30 12:00] VITALS: BP 149/82
[2017-08-30] MEDS ORDERED: ALBU0.0912 IH (12:30)
[2017-08-30] MEDS ORDERED: VITC500 PO (12:30)
[2017-08-30] MEDS ORDERED: LEVO500T2 PO (12:30)
[2017-08-30] MEDS ORDERED: BENA20TA5 PO (12:30)
[2017-08-30] MEDS ORDERED: FERR-18 PO (12:30)
[2017-08-30] MEDS ORDERED: [UNRECOGNIZED DRUG - CODE] PO (12:30)
[2017-08-30] MEDS ORDERED: PHOS1PDR4 PO (12:30)
[2017-08-30] MEDS ORDERED: GLUC-805 FS (12:30)
[2017-08-30] MEDS ORDERED: LANTUS SUBQ (12:30)
[2017-08-30] MEDS ORDERED: LANC-947 MC (12:30)
[2017-08-30] MEDS ORDERED: LACT10CA PO (12:30)
[2017-08-30] MEDS ORDERED: SODI650T2 PO (12:30)
[2017-08-30] MEDS ORDERED: LEVOFLOXACIN 500 MG/D5W PREMIX 100 ML IV SCH (14:00)
[2017-08-30] MEDS ORDERED: ONDANSETRON 4 MG/2 ML VIAL ONE (14:40)
[2017-08-30] MEDS: ONDANSETRON 4 MG/2 ML VIAL IVP PRN (14:42)
--- NOTE | 2017-08-30 14:58 | NUR ---
DISCHARGE INSTRUCTIONS AND PATIENT TEACHINGS GIVEN AND EXPLAINED TO PT. PT VERBALIZED UNDERSTANDING AND SIGNED DISCHARGE PAPERS. CHARGE NURSE CALLED DAUGHTER TO PAPER SPOOLER PT. IV PICC LINE RIGHT UPPER ARM REMOVED AND INTACT. NAME ARMBAND REMOVED. REMINDED PT AND DAUGHTER TO FOLLOW UP WITH PCP SCHEDULED ON DISCHARGE PAPERS. PT AND DAUGHTER VERBALIZED UNDERSTANDING. NO SOB NOTED. DENIES ANY PAIN OR DISCOMFORT AT THIS TIME.
--- NOTE | 2017-08-30 15:15 | NUR ---
WHEELED PT OUT GOING TO THE HOSPITAL PARKING LOT ASSISTED BY FAMILY MEDICINE PHYSICIAN WITH DAUGHTER, TO THEIR PRIVATE OWNED VEHICLE. NO SOB NOTED. DENIES ANY PAIN OR DISCOMFORT AT THIS TIME. PT DISCHARGED ON STABLE CONDITION.
[2017-08-30 15:58] LABS: HEMATOCRIT 31.4 % (36-48); HEMOGLOBIN 9.6 g/dL (12.0-16.0); MEAN CORPUSCULAR HEMOGLOBIN 26 pg (27-31); MEAN CORPUSCULAR HGB CONC 31 g/dL (33-37); MEAN CORPUSCULAR VOLUME 85 fL (80-94); PLATELET COUNT (AUTO) 180 K/uL (140-450); WHITE BLOOD COUNT (AUTO) 5.8 K/uL (4.8-10.8)
[2017-08-30 16:09] LABS: LYMPHOCYTES % (MANUAL) 9 % (20-46); MONOCYTES % (MANUAL) 7 % (5-12)
[2017-09-05 15:09] LABS: TACROLIMUS 8.3 ng/mL (2.0-20.0)
== END 2017-08-30 15:15 | disposition home or self-care (01) | DRG 177 ==
LOC: MED 09:56 → MTU 14:48 → MIC 18:32 → MTU 08-28 01:00
PROVIDERS: ADMIT Family Medicine; ATTEND Family Medicine
PROC: 05JY3ZZ Inspection of Upper Vein, Percutaneous Approach (ICD-10-PCS; principal; 2017-08-26)
PROC: 05JY3ZZ Inspection of Upper Vein, Percutaneous Approach (ICD-10-PCS; 2017-08-26)
PROC: 05HB33Z Insertion of Infusion Device into Right Basilic Vein, Percutaneous Approach (ICD-10-PCS; 2017-08-29)
DX: J69.0 Pneumonitis due to inhalation of food and vomit (principal); G93.41 Metabolic encephalopathy; N17.0 Acute kidney failure with tubular necrosis; J96.21 Acute and chronic respiratory failure with hypoxia; E43 Unspecified severe protein-calorie malnutrition; E11.10 Type 2 diabetes mellitus with ketoacidosis without coma; I50.43 Acute on chronic combined systolic (congestive) and diastolic (congestive) heart failure; D68.59 Other primary thrombophilia; N39.0 Urinary tract infection, site not specified; K92.1 Melena; E87.2 Acidosis; I42.9 Cardiomyopathy, unspecified; K56.7 Ileus, unspecified; I13.0 Hypertensive heart and chronic kidney disease with heart failure and stage 1 through stage 4 chronic kidney disease, or unspecified chronic kidney disease; Z94.0 Kidney transplant status; E11.22 Type 2 diabetes mellitus with diabetic chronic kidney disease; E78.5 Hyperlipidemia, unspecified; K21.9 Gastro-esophageal reflux disease without esophagitis; N18.9 Chronic kidney disease, unspecified; I45.10 Unspecified right bundle-branch block; E83.42 Hypomagnesemia; D53.9 Nutritional anemia, unspecified; K52.9 Noninfective gastroenteritis and colitis, unspecified; E11.51 Type 2 diabetes mellitus with diabetic peripheral angiopathy without gangrene; Z68.27 Body mass index [BMI] 27.0-27.9, adult; Z79.4 Long term (current) use of insulin; Z79.899 Other long term (current) drug therapy; Z90.710 Acquired absence of both cervix and uterus; Z98.49 Cataract extraction status, unspecified eye; Z99.2 Dependence on renal dialysis; Z80.41 Family history of malignant neoplasm of ovary
CPT/HCPCS: 36415; 36600; 71045; 74021; 76770; 80048; 80053; 80305; 81001; 82272; 82550; 82553; 82803; 82948; 83036; 83605; 83735; 83880; 84100; 84439; 84443; 84484; 85025; 85610; 85730; 87040; 87081; 87086; 87186; 87804; 93005; 93925; 93970; 94640; 96361; 96365; 96375; 97110; 97116; 97530; 99285; C1751; J1170; J1642; J1644; J1815; J1956; J2001; J2405; J2930; J3475; J3490; J7030; J7042; J7060; J7507; J7512; J7517; J7620; Q0092

== ENCOUNTER 2017-12-09 15:37 | Inpatient (IN) | payer OTHER, MEDICAID ==
[~2017-12-09] VITALS: Ht 167.6 cm; Wt 72.6 kg
[~2017-12-09 15:37] MED LIST changes: +ALBU0.0912 IH; -BENA10TA25 PO; +BENA20TA5 PO; -CALC-741 PO; -CEFT1PDS43 IV; +FERR-18 PO; +FLONAS NS; +GLUC-805 FS; -HUM SUBQ; +LACT10CA PO; +LANC-947 MC; -LANTUS; +LEVO500T2 PO; -OMEP40EC1 PO; +PHOS1PDR4 PO; -PRED5SYR3 PO; +PRED5TAB7 PO; +SLIDE SUBQ; +SODI650T2 PO; -TRAM50TA1 PO; +VITC500 PO; +[UNRECOGNIZED DRUG - CODE] PO
--- NOTE | 2017-12-09 15:41 | NUR ---
Franc lara in [facility] - 12/09/17 at 1542 by DARRICK PT AMBULATES TO CHAIR C
[2017-12-09 15:48] VITALS: BP 163/84
--- NOTE | 2017-12-09 15:56 | NUR ---
PT WHEEL CHAIR ASSISTED TO BED 2
--- NOTE | 2017-12-09 16:01 | NUR ---
Daughter, Oriana is stepping out for a few minutes. If needed, she can be reached at .
--- NOTE | 2017-12-09 16:10 | NUR ---
PT. BIB DAUGHTER TO ED W/ C/O DIAHRRHEA FOR 3 DAYS AND ABD PAIN 6/10 THAT RADIATES FROM LOWER ABD TO UPPER ABD AND DESCRIBED DULL. PT. AAOX4. PT. DENIES ANY N/V AT THIS TIME. PT. STATES " I FEEL WEAK AND HAVE HAD DIAHRRHEA FOR 3 DAYS". PT HAS RR EVEN AND UNLABORED. LS: CLEAR. SAFETY PRECAUTIONS INITIATED. DR. PRESCOTT NOTIFIED. WILL CONTINUE TO MONITOR
[2017-12-09] MEDS ORDERED: NACL 0.9% 1,000 ML IV SCH (16:28)
[2017-12-09] MEDS ORDERED: ONDANSETRON 4 MG/2 ML VIAL IVP ONE (16:30)
[2017-12-09] MEDS ORDERED: FAMOTIDINE 20 MG/2 ML VIAL IVP ONE (16:30)
--- NOTE | 2017-12-09 17:00 | NUR ---
PT. HAS O2 SATOF 98% VIA ROOM AIR. RR EVEN AND UNLABORED. OXYGEN NOT NEEDED AT THIS TIME.
[2017-12-09] MEDS ORDERED: cloNIDine 0.1 MG TAB PO ONE (17:40)
--- NOTE | 2017-12-09 17:40 | NUR ---
PROVIDED BED PINEDA FOR URINE SAMPLE, BUT WAS NOT ABLE TO PROVIDE SAMPLE, DR. PRESCOTT NOTIFIED. ADVISED TO WAIT FOR PT TO PROVIDE URINE ON HER OWN
--- NOTE | 2017-12-09 17:55 | NUR ---
PT. IN BED RESTING COMFORTABLY, ALERT AND RESPONSIVE, RR EVEN AND UNLABORED. BED IN LOWEST POSITION, BEDRAILSX2 . WILL CONTINUE TO MONITOR.
--- NOTE | 2017-12-09 18:03 | NUR ---
KARELY Summers FROM RADIOLOGY REPORTED A CRITICAL FINDING ON CT OF ABD AND PELVIS , INFORMED DR. PRESCOTT. WILL CONTINUE TO MONITOR.
[2017-12-09] MEDS ORDERED: ACETAMINOPHEN 325 MG TAB PO PRN (18:10)
[2017-12-09] MEDS ORDERED: ONDANSETRON 4 MG/2 ML VIAL IVP PRN (18:10)
[2017-12-09] MEDS ORDERED: HYDROcodone/APAP 7.5/325 MG 1 TAB PO PRN (18:10)
--- NOTE | 2017-12-09 18:45 | NUR ---
RECEIVED PATIENT FROM ER. PATIENT IS TRANSPORTED VIA GURNEY WITH TWO ER NURSE. PATIENT IS AWAKE, ALERT AND ORIENTED X4. NO SIGNS OF RESP DISTRESS ON ROOM AIR. CLEAR LUNGS. IV ON R HAND 22 GAUGE INFUSING NS 1L BOLUS. IV SITE IS CLEAN, DRY AND INTACT. SKIN IS INTACT. VITALS ARE STABLE AT THIS TIME. TELE MONITOR IS IN PLACE. MRSA CULTURE IS COLLECTED. SHE IS ALLERGIC TO CRANBERRY JUICE, DAIRY PRODUCTS, TOMATO JUICE AND SOUP, UNK ANTIBIOTICS. 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 BED IN LOW POSITION. CALL LIGHT WITHIN REACH. WILL CONTINUE TO MONITOR THE PATIENT.
--- NOTE | 2017-12-09 18:48 | NUR ---
Patient will be admitted to care of DR. MARTIN. Admited to TELEMETRY. Will go to room 121B. Belongings list completed. Report to ELIJAH VILLARREAL .
[2017-12-09 19:25] LABS: HEMATOCRIT 29.5 % (36-48); HEMOGLOBIN 9.2 g/dL (12.0-16.0); MEAN CORPUSCULAR HEMOGLOBIN 28 pg (27-31); MEAN CORPUSCULAR HGB CONC 31 g/dL (33-37); MEAN CORPUSCULAR VOLUME 89.7 fL (80-94); PLATELET COUNT (AUTO) 138 K/uL (140-450); RED BLOOD CELL COUNT(AUTO) 3.29 MIL/uL (4.20-5.40); RED CELL DISTRIBUTION WIDTH 15.5 % (11.6-13.7); WHITE BLOOD COUNT (AUTO) 2.8 K/uL (4.8-10.8)
--- NOTE | 2017-12-09 19:29 | NUR ---
GAVE BEDSIDE REPORT TO QI SPECIALIST NURSE. PATIENT IS ENDORSED IN STABLE CONDITION.
--- NOTE | 2017-12-09 19:44 | NUR ---
RECEIVED FROM AM RN REPORT . PT. AWAKE AND ABLE TO ANSWER WELL . SKIN INTACT AND NO SOB. DENIES ANY PAIN AT THIS TIME. DX. OF DIARRHEA AND DEHYDRATION. WITH RH #22 IVF WITH NS BOLUS AT THIS TIME. CARE PLANS FOR THE NIGHT DISCUSSED WITH HER AND CALL LIGHT, RAPID RESPONSE EXPLAINED. TELEMETRY MONITORING. BED ALARM ON .
[2017-12-09 19:52] LABS: EOSINOPHILS % (MANUAL) 3 % (0-4); LYMPHOCYTES % (MANUAL) 30 % (20-46); MONOCYTES % (MANUAL) 6 % (5-12)
[2017-12-09 19:57] LABS: CHOL/HDL RATIO 3.3 (1-4.5); FREE T4 (FREE THYROXINE) 1.09 ng/dL (0.76-1.46); THYROID STIMULATING HORMONE 4.8 uIU/mL (0.34-3.74)
[2017-12-09 20:10] LABS: MAGNESIUM 0.8 mg/dL (1.8-2.4)
[2017-12-09] MEDS ORDERED: MAG SULF 2000 MG/WATER PREMIX 50 ML IV ONE ×2 (20:10→21:10)
--- NOTE | 2017-12-09 20:10 | NUR ---
INFORMED RESIDENT THAT HER MAGNESIUM LEVEL REPORTED TO ME BY LAB. MARINE STEWARD IS 0.8 AND TROPONIN OF 0.257. NO ORDERS GIVEN AT THIS TIME. RESIDENT TO SEE PT.
--- NOTE | 2017-12-09 20:10 | NUR ---
ABLE TO TALK WITH PT.S DAUGHTER ZAHRA ON THE PHONE FOR FURTHER HISTORY OF MOTHER. DAUGHTER TAKES CARE OF PT. AT HOME. STATED THAT HER MOTHER NEVER HAD ANY HEMODIALYSIS FOR 13 YEARS ALREADY.
[2017-12-09 20:25] LABS: ACETONE, SERUM NEGATIVE (NEGATIVE)
[2017-12-09 20:35] LABS: ANION GAP 17.1 (8-16); CHLORIDE 114 mmol/L (98-107); CREATININE 2.7 mg/dL (0.6-1.3); GLUCOSE 93 mg/dL (74-106); POTASSIUM 4.1 mmol/L (3.5-5.1); SODIUM SERUM 141 mmol/L (136-145); UREA NITROGEN, BLOOD 26 mg/dL (7-18)
[2017-12-09 20:42] LABS: ALBUMIN 1.8 g/dL (3.4-5.0); AMYLASE 66 U/L (25-115); ASPARTATE AMINOTRANSFERASE 15 U/L (15-37); LIPASE 62 U/L (73-393); TOTAL BILIRUBIN 0.2 mg/dL (0.0-1.0)
[2017-12-09] MEDS ORDERED: DEXTROSE 50% 50 ML SYR IVP PRN (20:45)
[2017-12-09] MEDS: TACROLIMUS 1 MG CAP PO SCH (21:00)
[2017-12-09] MEDS ORDERED: DOCUSATE SODIUM 100 MG GELCAP PO SCH (21:00)
[2017-12-09] MEDS: INSULIN LANTUS 100 UNITS/ML 10 ML VIAL SUBQ SCH (21:00)
[2017-12-09 21:02] VITALS: BP 112/69
[2017-12-09] MEDS: BLOOD GLUCOSE MONITORING 1 DEV DEV FS SCH (21:26)
[2017-12-09] MEDS: NACL 0.9% 1,000 ML IV SCH (21:26)
[2017-12-09] MEDS: BENAZEPRIL 20 MG TAB PO SCH (21:27)
--- NOTE | 2017-12-09 21:30 | NUR ---
MAG RIDER 2 GMS. INFUSED PER ORDER FOR MAGNESIUM LEVEL OF 0.8-
--- NOTE | 2017-12-09 22:00 | NUR ---
INFORMED RESIDENT MD STEPHEN RE:PROGRAF NOT AVAILABLE AT THIS TIME. " I WILL CALL LITHOGRAPHIC PHOTOGRAPHER AND INFORM HIM ABOUT IT THAT WE WILL START ON A.M."
--- NOTE | 2017-12-09 23:20 | NUR ---
SEQUENTIALS NOT APPLIED RT PT. PLACED ON HEPARIN SQ DAILY BY
[2017-12-10 00:32] VITALS: BP 135/74
--- NOTE | 2017-12-10 03:00 | NUR ---
PT. SLEEPING. WAKES UP EASILY WHEN TOUCHED. A/O X 4. VERBALIZES WELL. TELEMETRY MONITORING.
[2017-12-10 04:00] VITALS: BP 130/64
[2017-12-10] MEDS: BLOOD GLUCOSE MONITORING 1 DEV DEV FS SCH ×4 (05:54→22:27)
--- NOTE | 2017-12-10 05:56 | NUR ---
PT. AWAKE AND ALERT. VERBALIZES WELL. BLOOD SUGAR CHECK PER FINGERSTICK IS 77 MG/DL. GAVE 240 ML OF APPLE JUICE TO INCREASE BLOOD SUGAR TILL BREAKFAST TIME. PT. AWARE OF IT. NO COMPLAINTS DONE THIS SHIFT. URINE SAMPLE SENT TO LABS ORDERED. ASSISTED TO URINATE IN BEDPAN.
--- NOTE | 2017-12-10 06:44 | NUR ---
PT. HAD WATERY STOOL 2 X THIS SHIFT. ABLE TO VERBALIZE WELL. NO COMPLAINTS DONE.
--- NOTE | 2017-12-10 07:10 | NUR ---
RECEIVED REPORT FROM DATABASE CONSULTANT NURSE AT BEDSIDE FOR CONTINUITY OF CARE. PATIENT ALERT AND ORIENTED. NO DISTRESS NOTED ON ROOM AIR AT THE MOMENT. IV PATENT, ASYMPTOMATIC, AND INTACT, INFUSING IVF WELL. INITIAL ASSESSMENT DONE. SKIN INTACT. SAFETY PRECAUTION IN PLACE, CALL LIGHT WITHIN REACH. WILL CONTINUE TO MONITOR PATIENT.
[2017-12-10] MEDS: NACL 0.9% 1,000 ML IV SCH ×2 (07:22→11:47)
--- NOTE | 2017-12-10 07:40 | NUR ---
PATIENT HAD DIARRHEA. PATIENT CLEANED AND CHANGED. PATIENT NOW SITTING UP IN BED EATING BREAKFAST. NO SIGNS OF DISTRESS NOTED, PATIENT DENIES PAIN AT THIS TIME. SAFETY PRECAUTION IN PLACE, CALL LIGHT WITHIN REACH. WILL CONTINUE TO MONITOR PATIENT.
[2017-12-10 08:00] VITALS: BP 164/79
[2017-12-10 08:16] LABS: BASOPHILS % (AUTO) 0.3 % (0.0-2.0); EOSINOPHILS # (AUTO) 0.1 K/uL (0-0.4); EOSINOPHILS % (AUTO) 2.3 % (0.0-4.0); HEMATOCRIT 30.7 % (36-48); HEMOGLOBIN 9.3 g/dL (12.0-16.0); LYMPHOCYTES # (AUTO) 0.6 K/uL (2.5-16.5); LYMPHOCYTES % (AUTO) 23.9 % (20.5-51.1); MEAN CORPUSCULAR HEMOGLOBIN 27 pg (27-31); MEAN CORPUSCULAR HGB CONC 30 g/dL (33-37); MEAN CORPUSCULAR VOLUME 89.7 fL (80-94); MONOCYTES # (AUTO) 0.3 K/uL (0.8-1.0); MONOCYTES % (AUTO) 10.6 % (1.7-9.3); NEUTROPHILS # (AUTO) 1.7 K/uL (1.8-7.7); NEUTROPHILS % (AUTO) 62.9 % (42.2-75.2); PLATELET COUNT (AUTO) 139 K/uL (140-450); RED BLOOD CELL COUNT(AUTO) 3.43 MIL/uL (4.20-5.40); WHITE BLOOD COUNT (AUTO) 2.7 K/uL (4.8-10.8)
[2017-12-10 08:48] LABS: ANION GAP 12.5 (8-16); CARBON DIOXIDE 17.2 mmol/L (21-32); CHLORIDE 115 mmol/L (98-107); CREATININE 2.9 mg/dL (0.6-1.3); GLUCOSE 139 mg/dL (74-106); POTASSIUM 4.7 mmol/L (3.5-5.1); SODIUM SERUM 140 mmol/L (136-145); UREA NITROGEN, BLOOD 25 mg/dL (7-18)
[2017-12-10 08:55] LABS: MAGNESIUM 1.5 mg/dL (1.8-2.4); PHOSPHORUS 3.3 mg/dL (2.5-4.9)
[2017-12-10] MEDS: TACROLIMUS 1 MG CAP PO SCH ×2 (09:00→20:38)
[2017-12-10] MEDS ORDERED: SODIUM PHOS / POTASSIUM PHOS 1 PKT PDR PO SCH (09:00)
[2017-12-10] MEDS ORDERED: MEROPENEM 500 MG in NACL 0.9% 50 ML IV SCH (09:00)
[2017-12-10] MEDS: ATENOLOL 50 MG TAB PO SCH (09:45)
[2017-12-10] MEDS: FERROUS SULFATE 325 MG TABEC PO SCH (09:45)
[2017-12-10] MEDS: ASCORBIC ACID 500 MG TAB PO SCH (09:45)
[2017-12-10] MEDS: BENAZEPRIL 20 MG TAB PO SCH ×2 (09:45→20:39)
--- NOTE | 2017-12-10 09:45 | NUR ---
ORDERED MEDICATIONS GIVEN. PATIENT TOLERATED THEM WELL. PATIENT NOW RESTING IN BED, NO SIGNS OF DISTRESS OR SOB NOTED. DENIES PAIN AT THIS TIME. SAFETY PRECAUTION IN PLACE, CALL LIGHT WITHIN REACH, WILL CONTINUE TO MONITOR PATIENT.
[2017-12-10] MEDS: FLUTICASONE NASAL 50 MCG/ACTUATION 16 GM BTL NS SCH (09:46)
[2017-12-10] MEDS: MYCOPHENOLATE 250 MG CAP PO SCH ×3 (09:46→17:13)
[2017-12-10] MEDS: amLODIPine 5 MG TAB PO SCH (09:46)
[2017-12-10] MEDS: ATORVASTATIN 20 MG TAB PO SCH (09:46)
--- NOTE | 2017-12-10 10:18 | NUR ---
PATIENT HAS BEEN SCREENED AND CATEGORIZED HIGH NUTRITION RISK. PATIENT WILL BE SEEN WITHIN 1-2 DAYS OF ADMISSION. 12/10/17 - 12/11/17 ADIEL MOORE MBA, RD
[2017-12-10] MEDS: predniSONE 5 MG TAB PO SCH (11:38)
--- NOTE | 2017-12-10 11:39 | NUR ---
ORDERED MEDICATION GIVEN. PATIENT TOLERATED IT WELL. PATIENT NOW RESTING IN BED, DAUGHTER AT BEDSIDE. UPDATED DAUGHTER ON PLAN OF CARE, DAUGHTER VERBALIZED UNDERSTANDING. NO SIGNS OF DISTRESS OR SOB NOTED. DENIES PAIN AT THIS TIME. SAFETY PRECAUTION IN PLACE, CALL LIGHT WITHIN REACH, WILL CONTINUE TO MONITOR PATIENT.
--- NOTE | 2017-12-10 11:45 | NUR ---
PROGRAF MEDICATION SCANNED. [employer] STATED "BARCODE INVALID". PHARMACIST HANNA CALLED, HE ALSO CAME BY WITH NEW BARCODE. NEW BARCODE STILL SCANNED "BARCODE INVALID". PER HANNA, PROGRAF CAN BE GIVEN, NEEDS TO BE ENTERED MANUALLY. MEDICATION ADMINISTERED. PATIENT TOLERATED IT WELL.
[2017-12-10 12:00] VITALS: BP 146/74
--- NOTE | 2017-12-10 12:35 | NUR ---
DR. SAGASTUME IN TO SEE THE PATIENT. WILL WAIT FOR HIS UPDATED ORDERS.
--- NOTE | 2017-12-10 12:55 | NUR ---
DR. GUILLAUME IN TO SEE THE PATIENT. WILL WAIT FOR HIS UPDATED ORDERS.
--- NOTE | 2017-12-10 14:05 | NUR ---
URINE SAMPLE OBTAINED, SENT TO LAB.
[2017-12-10] MEDS ORDERED: MAG SULF 2000 MG/WATER PREMIX 50 ML IV SCH (15:00)
[2017-12-10 16:00] VITALS: BP 147/75
--- NOTE | 2017-12-10 16:45 | NUR ---
LAB CALLED WITH TROPONIN LEVEL OF 0.298. INFORMED THE DOCTORS. NO NEW ORDERS GIVEN. PATIENT NOW SITTING ON SIDE OF BED, NO SIGNS OF DISTRESS OR SOB NOTED. DENIES PAIN AT THIS TIME. SAFETY PRECAUTION IN PLACE, CALL LIGHT WITHIN REACH, WILL CONTINUE TO MONITOR PATIENT.
[2017-12-10] MEDS: FAMOTIDINE 20 MG TAB PO SCH (17:13)
[2017-12-10] MEDS: INSULIN LISPRO SLIDING SCALE 100 UNITS/ML VIAL SUBQ PRN ×2 (17:18→22:32)
--- NOTE | 2017-12-10 19:24 | NUR ---
REPORT GIVEN TO EXECUTIVE WELLNESS PROGRAMS DIRECTOR NURSE AT BEDSIDE FOR CONTINUITY OF CARE. ENDORSED CDIFF TOXIN COLLECTION TO EXECUTIVE WELLNESS PROGRAMS DIRECTOR NURSE. PATIENT IN STABLE CONDITION.
--- NOTE | 2017-12-10 19:25 | NUR ---
RECEIVED FROM AM RN IN BED SITTING UP. CALL LIGHT WITH IN REACH. PT. WATCHING TV. ABLE TO VERBALIZE SIMPLE NEEDS. C-DIFF SAMPLE SENT TO LAB BY AM RN. DENIES PAIN. GOD AFFECT. TELEMETRY MONITORING. IVF SITE INTACT AND NO INFILTRATION. BED ALARM ON.
[2017-12-10 20:29] VITALS: BP 130/64
--- NOTE | 2017-12-10 22:00 | NUR ---
PT. AWAKE AND ASSISTED BY ELECTRICIAN SUPERVISOR AIRPLANE TO URINATE IN BEDPAN REQUESTED. NEEDS ATTENDED TO . ASSISTED TO TURN TO SIDES Q2H . PILLOW SUPPORT TO PRESSURE AREAS. ON TELEMETRY MONITORING.
[2017-12-10] MEDS: INSULIN LANTUS 100 UNITS/ML 10 ML VIAL SUBQ SCH (22:32)
[2017-12-11 00:45] VITALS: BP 143/77
--- NOTE | 2017-12-11 00:50 | NUR ---
SLEEPING AT THIS TIME. CALL LIGHT WITH IN REACH AND ABLE TO USE CALL LIGHT. NO SOB. TELEMETRY MONITORING. ASSISTED TO BEDPAN REQUESTED.
[2017-12-11 04:00] VITALS: BP 134/61
--- NOTE | 2017-12-11 04:00 | NUR ---
PT. SLEEPING. NO RESTLESSNESS. ABLE TO WAKE UP EASILY WHEN TOUCHED. TURNS SELF BUT ASSISTED TO TURN BY CNAS.
[2017-12-11] MEDS: BLOOD GLUCOSE MONITORING 1 DEV DEV FS SCH ×4 (05:30→20:05)
[2017-12-11 05:44] LABS: BASOPHILS % (AUTO) 0.4 % (0.0-2.0); EOSINOPHILS % (AUTO) 1.3 % (0.0-4.0); HEMATOCRIT 29.2 % (36-48); HEMOGLOBIN 9.1 g/dL (12.0-16.0); LYMPHOCYTES # (AUTO) 0.5 K/uL (2.5-16.5); LYMPHOCYTES % (AUTO) 16.6 % (20.5-51.1); MEAN CORPUSCULAR HEMOGLOBIN 28 pg (27-31); MEAN CORPUSCULAR HGB CONC 31 g/dL (33-37); MEAN CORPUSCULAR VOLUME 89.2 fL (80-94); MONOCYTES # (AUTO) 0.3 K/uL (0.8-1.0); MONOCYTES % (AUTO) 10.5 % (1.7-9.3); NEUTROPHILS % (AUTO) 71.2 % (42.2-75.2); PLATELET COUNT (AUTO) 135 K/uL (140-450); RED BLOOD CELL COUNT(AUTO) 3.27 MIL/uL (4.20-5.40); RED CELL DISTRIBUTION WIDTH 15.8 % (11.6-13.7); WHITE BLOOD COUNT (AUTO) 2.7 K/uL (4.8-10.8)
--- NOTE | 2017-12-11 06:00 | NUR ---
PT. AWAKE AT THIS TIME. AM PERSONAL HYGIENE RENDERED BY CNAS. ON TELEMETRY MONITORING. NO SOB OR PAIN COMPLAINTS DONE THIS SHIFT. ABLE TO VERBALIZE NEEDS WELL. NO BM THIS SHIFT.
[2017-12-11 06:17] LABS: ANION GAP 13.6 (8-16); CARBON DIOXIDE 17.9 mmol/L (21-32); CHLORIDE 113 mmol/L (98-107); CREATININE 2.9 mg/dL (0.6-1.3); GLUCOSE 133 mg/dL (74-106); POTASSIUM 4.5 mmol/L (3.5-5.1); SODIUM SERUM 140 mmol/L (136-145); UREA NITROGEN, BLOOD 27 mg/dL (7-18)
[2017-12-11 06:19] LABS: MAGNESIUM 1.9 mg/dL (1.8-2.4); PHOSPHORUS 3.5 mg/dL (2.5-4.9)
--- NOTE | 2017-12-11 07:10 | NUR ---
RECEIVED REPORT FROM MELTER SUPERVISOR OXYGEN FURNACE NURSE AT BEDSIDE FOR CONTINUITY OF CARE. PATIENT ASLEEP IN BED. NO SIGN OF DISTRESS OR SOB NOTED ON ROOM AIR AT THE MOMENT. IV PATENT, ASYMPTOMATIC, AND INTACT, INFUSING IVF WELL. INITIAL ASSESSMENT DONE. SKIN INTACT. SAFETY PRECAUTION IN PLACE, CALL LIGHT WITHIN REACH. WILL CONTINUE TO MONITOR PATIENT.
[2017-12-11 08:00] VITALS: BP 153/76
--- NOTE | 2017-12-11 08:55 | NUR ---
PHYSICAL THERAPY IN TO SEE THE PATIENT. WILL WAIT FOR THE EVALUATION.
--- NOTE | 2017-12-11 09:05 | NUR ---
DR. ANDRADE IN TO SEE THE PATIENT. DAUGHTER ZAHRA IS AT BEDSIDE. DR ANDRADE VERBALIZING PLAN OF CARE, DAUGHTER VERBALIZED UNDERSTANDING. PATIENT RESTING IN BED, NO SIGNS OF DISTRESS OR SOB NOTED ON ROOM AIR. PATIENT DENIES PAIN. SAFETY PRECAUTION IN PLACE, CALL LIGHT WITHIN REACH. WILL CONTINUE TO MONITOR PATIENT.
[2017-12-11] MEDS: FLUTICASONE NASAL 50 MCG/ACTUATION 16 GM BTL NS SCH (09:25)
[2017-12-11] MEDS: ATENOLOL 50 MG TAB PO SCH (09:25)
[2017-12-11] MEDS: ASCORBIC ACID 500 MG TAB PO SCH (09:25)
[2017-12-11] MEDS: amLODIPine 5 MG TAB PO SCH (09:25)
[2017-12-11] MEDS: MYCOPHENOLATE 250 MG CAP PO SCH ×3 (09:25→17:58)
[2017-12-11] MEDS: TACROLIMUS 1 MG CAP PO SCH ×2 (09:26→20:21)
[2017-12-11] MEDS: predniSONE 5 MG TAB PO SCH (09:26)
[2017-12-11] MEDS: BENAZEPRIL 20 MG TAB PO SCH ×2 (09:26→20:20)
[2017-12-11] MEDS: ATORVASTATIN 20 MG TAB PO SCH (09:26)
[2017-12-11] MEDS: FERROUS SULFATE 325 MG TABEC PO SCH (09:26)
[2017-12-11] MEDS ORDERED: FUROSEMIDE 40 MG TAB PO SCH (10:15)
--- NOTE | 2017-12-11 10:20 | NUR ---
ADMINISTERED ORDERED LASIX, PATIENT TOLERATED IT WELL. NEW ORDER FOR FLUID RESTRICTION OF 1500 ML IN. CALLED DIETARY TO INFORM THEM OF THIS NEW ORDER. THEY VERBALIZED UNDERSTANDING. INFORMED PATIENT, SHE VERBALIZED UNDERSTANDING.
--- NOTE | 2017-12-11 11:05 | NUR ---
PATIENT VOIDED IN BEDPAN. PATIENT CLEANED CHANGED. URINE SAMPLE OBTAINED AND DROPPED OFF IN LAB. LAB WAS CALLED TO CONFIRM THAT THEY HAVE THE SAMPLE AND THAT IT WILL BE TESTED ACCORDINGLY. PATIENT RESTING IN BED, NO SIGNS OF DISTRESS OR SOB NOTED ON ROOM AIR. PATIENT DENIES PAIN AT THIS TIME. SAFETY PRECAUTION IN PLACE, CALL LIGHT WITHIN REACH. WILL CONTINUE TO MONITOR PATIENT.
[2017-12-11 12:00] VITALS: BP 152/75
--- NOTE | 2017-12-11 12:00 | NUR ---
I met with Patient briefly to discuss, treatment, follow up and possible transfer to a higher level of care. Patient was awake and alert having her lunch. Patient stated that she has talk to MD and her daughter about her condition and feels unsure about getting other treatment and been transfer. Patient asked these service writer about power of trade mark attorney and advance directive I explained with detail about advance directives asked her if she had one on place. Patient reported not having an advance directive and wanted all forms and information provided by these service writer. Patient follow by stating that he daughter is interested on getting a power of trade mark attorney but she is unsure of getting one. I informed patient the reason and importance of advance directives as well having a health discussion with daughter in regards patient's wants. Patient agreed and thanked me for my assistance.
[2017-12-11 12:40] LABS: APPEARANCE,URINE SLIGHTLY HAZY (CLEAR); BILIRUBIN,URINE NEGATIVE (NEGATIVE); COLOR,URINE YELLOW (YELLOW); UGLUCOSE TRACE (NEGATIVE)
[2017-12-11 13:10] LABS: BLOOD, URINE 1+ (NEGATIVE); RBC,URINE 0-5 (RARE) /HPF (0-5)
[2017-12-11 13:11] LABS: LEUKOCYTE ESTERASE ,URINE 1+ (NEGATIVE)
[2017-12-11 13:13] LABS: YEAST,URINE Moderate /HPF (None Seen)
[2017-12-11 13:14] LABS: NITRITE, URINE POSITIVE (NEGATIVE)
--- NOTE | 2017-12-11 14:05 | NUR ---
12/11/17 RD INITIAL ASSESSMENT COMPLETED PLEASE REFER TO NUTRITION ASSESSMENT UNDER CARE ACTIVITY FOR ESTIMATED NUTRITIONAL NEEDS. 1. CONTINUE [facility] DIET, RECOMMEND MECHANICAL SOFT TEXTURE 2. PROVIDED PT WITH [facility] DIET EDUCATION 3. ENCOURAGE INCREASE PO INTAKE 4. RD TO FOLLOW-UP 3-5 DAYS, MODERATE RISK [address]
[2017-12-11] MEDS ORDERED: FLUCONAZOLE 100 MG TAB PO SCH (14:17)
--- NOTE | 2017-12-11 14:25 | NUR ---
DAUGHTER LULY AT BEDSIDE. PATIENT RESTING IN BED, NO SIGNS OF DISTRESS OR SOB NOTED. PATIENT DENIES PAIN AT THIS TIME. CALL LIGHT WITHIN REACH. WILL CONTINEU TO MONITOR PATIENT.
--- NOTE | 2017-12-11 15:02 | NUR ---
CM NOTE INITIAL REVIEW DONE.
[2017-12-11 16:00] VITALS: BP 143/69
[2017-12-11] MEDS: FAMOTIDINE 20 MG TAB PO SCH (17:58)
--- NOTE | 2017-12-11 17:58 | NUR ---
ORDERED MEDICATIONS GIVEN. PATIENT TOLERATED THEM WELL. PATIENT CURRENTLY SITTING UP IN BED EATING DINNER. NO SIGNS OF DISTRESS OR SOB NOTED ON ROOM AIR. PATIENT DENIES PAIN. SAFETY PRECAUTION IN PLACE, CALL LIGHT WITHIN REACH. WILL CONTINUE TO MONITOR PATIENT.
--- NOTE | 2017-12-11 18:01 | NUR ---
ADMINISTERED ORDERED MEDICATIONS. PATIENT TOLERATING THEM WELL AND CURRENTLY EATING DINNER. NO SIGNS OF DISTRESS OR SOB NOTED. PATIENT DENIES PAIN. SAFETY PRECAUTION IN PLACE, CALL LIGHT WITHIN REACH, WILL CONTINUE TO MONITOR PATIENT. Addendum: 12/11/17 at 1919 by Kelton Valenzuela RN PLEASE DISREGARD, DUPLICATE ENTRY.
[2017-12-11] MEDS: NACL 0.9% 1,000 ML IV SCH (18:29)
--- NOTE | 2017-12-11 18:31 | NUR ---
DR. GARCIA IN TO SEE THE PATIENT. WILL AWAIT FOR HIS EVALUATION.
--- NOTE | 2017-12-11 19:17 | NUR ---
REPORT GIVEN TO TUBE MILL OPERATOR NURSE AT BEDSIDE FOR CONTINUITY OF CARE. PATIENT IN STABLE CONDITION.
--- NOTE | 2017-12-11 19:18 | NUR ---
PATIENT REPORT RECEIVED FROM MORNING NURSE AT BEDSIDE. PATIENT IS AWAKE, ALERT AND ORIENTED. NO SIGNS AND SYMPTOMS OF DISTRESS NOTED. NO COMPLAINTS OF PAIN AT THIS TIME. IV SITE NOTED ON RIGHT HAND, IVF INFUSING WELL. PLAN OF CARE DISCUSSED WITH PATIENT. PATIENT VERBALIZED UNDERSTANDING. BED IN LOWEST POSITION, SIDE RAILS UP AND CALL LIGHT WITHIN REACH. WILL CONTINUE TO MONITOR.
[2017-12-11 20:00] VITALS: BP 161/78
[2017-12-11] MEDS: INSULIN LANTUS 100 UNITS/ML 10 ML VIAL SUBQ SCH (20:22)
[2017-12-11] MEDS: INSULIN LISPRO SLIDING SCALE 100 UNITS/ML VIAL SUBQ PRN (20:23)
--- NOTE | 2017-12-11 21:00 | NUR ---
MEDICATION EDUCATION GIVEN TO PATIENT. PATIENT VERBALIZED UNDERSTANDING. MEDICATION ADMINISTERED BY STUDENT NURSE UNDER SUPERVISION OF CLINICAL INSTRUCTOR. PATIENT TOLERATED WELL. WILL CONTINUE TO MONITOR. HEPARIN HELD DUE TO LOW PLATELETS
--- NOTE | 2017-12-11 23:00 | NUR ---
CHECKED ON PATIENT. PATIENT IS ASLEEP. NO SIGNS AND SYMPTOMS OF DISTRESS NOTED. BREATHING EVEN AND UNLABORED. BED IN LOWEST POSITION, SIDE RAILS UP AND CALL LIGHT WITHIN REACH. WILL CONTINUE TO MONITOR.
[2017-12-12] VITALS: BP 140/65
--- NOTE | 2017-12-12 03:30 | NUR ---
CHECKED ON PATIENT. PATIENT IS ASLEEP. NO SIGNS AND SYMPTOMS OF DISTRESS NOTED. BREATHING EVEN AND UNLABORED. WILL CONTINUE TO MONITOR.
[2017-12-12 04:00] VITALS: BP 139/66
[2017-12-12] MEDS: BLOOD GLUCOSE MONITORING 1 DEV DEV FS SCH ×4 (06:35→20:30)
[2017-12-12] MEDS: INSULIN LISPRO SLIDING SCALE 100 UNITS/ML VIAL SUBQ PRN ×3 (06:57→20:57)
[2017-12-12 07:08] LABS: BASOPHILS % (AUTO) 0.5 % (0.0-2.0); EOSINOPHILS % (AUTO) 1.1 % (0.0-4.0); HEMATOCRIT 29.4 % (36-48); HEMOGLOBIN 9.3 g/dL (12.0-16.0); LYMPHOCYTES # (AUTO) 0.5 K/uL (2.5-16.5); LYMPHOCYTES % (AUTO) 15.8 % (20.5-51.1); MEAN CORPUSCULAR HEMOGLOBIN 28 pg (27-31); MEAN CORPUSCULAR HGB CONC 32 g/dL (33-37); MEAN CORPUSCULAR VOLUME 88.5 fL (80-94); MONOCYTES # (AUTO) 0.3 K/uL (0.8-1.0); MONOCYTES % (AUTO) 9.6 % (1.7-9.3); NEUTROPHILS # (AUTO) 2.3 K/uL (1.8-7.7); PLATELET COUNT (AUTO) 167 K/uL (140-450); RED BLOOD CELL COUNT(AUTO) 3.32 MIL/uL (4.20-5.40); WHITE BLOOD COUNT (AUTO) 3.2 K/uL (4.8-10.8)
--- NOTE | 2017-12-12 07:15 | NUR ---
PATIENT REPORT GIVEN TO MORNING NURSE AT BEDSIDE FOR CONTINUITY OF CARE. PATIENT IS IN STABLE CONDITION
--- NOTE | 2017-12-12 07:30 | NUR ---
RECEIVED REPORT FROM AM NURSE, PT AWAKE, ALERT. OM ROOM AIR, NO S/S OF RESPIRATORY DISTRESS NOTED,PT ABLE TO MOVE ALL HER EXTREMITIES BUT GENERALIZED WEAKNESS NOTED, IV TO RIGHT HAND # 22 RUNNING NS AT 10 MLS/HR. SITE INTACT AND PATENT. POC EXPLAINED TO PT, PT VERBALIZED UNDERSTANDING, CALL LIGHT IN REACH, WILL CONTINUE TO MONITOR.
[2017-12-12 07:50] LABS: ANION GAP 13.8 (8-16); CARBON DIOXIDE 17.4 mmol/L (21-32); CHLORIDE 112 mmol/L (98-107); CREATININE 3.1 mg/dL (0.6-1.3); GLUCOSE 161 mg/dL (74-106); POTASSIUM 4.2 mmol/L (3.5-5.1); SODIUM SERUM 139 mmol/L (136-145); UREA NITROGEN, BLOOD 28 mg/dL (7-18)
[2017-12-12 08:00] VITALS: BP 145/74
[2017-12-12] MEDS: FERROUS SULFATE 325 MG TABEC PO SCH (08:18)
[2017-12-12] MEDS: BENAZEPRIL 20 MG TAB PO SCH (08:19)
[2017-12-12] MEDS: ATENOLOL 50 MG TAB PO SCH (08:19)
[2017-12-12] MEDS: ATORVASTATIN 20 MG TAB PO SCH (08:20)
[2017-12-12] MEDS: ASCORBIC ACID 500 MG TAB PO SCH (08:20)
[2017-12-12] MEDS: predniSONE 5 MG TAB PO SCH (08:20)
[2017-12-12] MEDS: amLODIPine 5 MG TAB PO SCH (08:21)
[2017-12-12] MEDS: FUROSEMIDE 40 MG TAB PO SCH (08:21)
[2017-12-12] MEDS: FLUTICASONE NASAL 50 MCG/ACTUATION 16 GM BTL NS SCH (08:23)
[2017-12-12] MEDS: MYCOPHENOLATE 250 MG CAP PO SCH ×3 (08:28→17:15)
[2017-12-12] MEDS ORDERED: FLUCONAZOLE 100 MG TAB PO SCH (09:00)
[2017-12-12] MEDS: TACROLIMUS 1 MG CAP PO SCH ×2 (09:49→21:12)
[2017-12-12 12:00] VITALS: BP 138/70
--- NOTE | 2017-12-12 13:30 | NUR ---
pt's daughter in to have conversation with and charge nurse while I was in lunch break. assisted pt to bathroom by ROLL MILL OPERATOR, PT TOLERATED WELL.
--- NOTE | 2017-12-12 14:30 | NUR ---
F/C INSERTED ORDERED. CLEAR LIGHT YELLOW URINE NOTED. STERIL SKILL APPLIED. PT TOLERATED WELL
[2017-12-12 16:00] VITALS: BP 151/74
--- NOTE | 2017-12-12 17:00 | NUR ---
pt sleeping at this time, no s/s of respiratory distress or discomfort noted.
[2017-12-12] MEDS: FAMOTIDINE 20 MG TAB PO SCH (17:15)
--- NOTE | 2017-12-12 19:15 | NUR ---
report given to pm nurse, vitals stable at this time.
--- NOTE | 2017-12-12 19:16 | NUR ---
PATIENT REPORT RECEIVED FROM MORNING NURSE AT BEDSIDE. PATIENT IS AWAKE, ALERT AND ORIENTED. NO SIGNS AND SYMPTOMS OF DISTRESS NOTED. PATIENT IS ON ROOM AIR. IV SITE NOTED ON RIGHT HAND, SALINE LOCKED. BOLTON CATHETER IN PLACE DRAINING YELLOW URINE. PLAN OF CARE DISCUSSED WITH PATIENT. PATIENT VERBALIZED UNDERSTANDING. BED IN LOWEST POSITION, SIDE RAILS UP AND CALL LIGHT WITHIN REACH. WILL CONTINUE TO MONITOR.
[2017-12-12 20:00] VITALS: BP 144/70
[2017-12-12] MEDS: INSULIN LANTUS 100 UNITS/ML 10 ML VIAL SUBQ SCH (20:57)
--- NOTE | 2017-12-12 21:00 | NUR ---
PATIENT HAD A BOWEL MOVEMENT. PERICARE DONE. PATIENT TOLERATED WELL. WILL CONTINUE TO MONITOR.
--- NOTE | 2017-12-12 23:00 | NUR ---
CHECKED ON PATIENT. PATIENT IS ASLEEP. NO SIGNS AND SYMPTOMS OF DISTRESS NOTED. BREATHING EVEN AND UNLABORED. WILL CONTINUE TO MONITOR.
--- NOTE | 2017-12-13 | NUR ---
CHECKED ON PATIENT. PATIENT IS ASLEEP. NO SIGNS AND SYMPTOMS OF DISTRESS NOTED. BREATHING EVEN AND UNLABORED. WILL CONTINUE TO MONITOR.
--- NOTE | 2017-12-13 02:00 | NUR ---
CHECKED ON PATIENT. PATIENT IS ASLEEP. NO SIGNS AND SYMPTOMS OF DISTRESS NOTED. BREATHING EVEN AND UNLABORED. WILL CONTINUE TO MONITOR.
[2017-12-13 04:00] VITALS: BP 152/74
[2017-12-13] MEDS: BLOOD GLUCOSE MONITORING 1 DEV DEV FS SCH ×4 (06:30→21:24)
[2017-12-13 06:37] LABS: CARBON DIOXIDE 14.9 mmol/L (21-32); CHLORIDE 114 mmol/L (98-107); GLUCOSE 85 mg/dL (74-106); POTASSIUM 3.9 mmol/L (3.5-5.1); SODIUM SERUM 141 mmol/L (136-145); UREA NITROGEN, BLOOD 33 mg/dL (7-18)
--- NOTE | 2017-12-13 07:20 | NUR ---
PATIENT REPORT GIVEN TO MORNING NURSE AT BEDSIDE. PATIENT IS IN STABLE CONDITION
[2017-12-13 08:00] VITALS: BP 155/74
--- NOTE | 2017-12-13 08:00 | NUR ---
Patient's Plan of Care was discussed and reviewed with MARQUISE RUELAS
--- NOTE | 2017-12-13 08:00 | NUR ---
VITAL SIGNS WNL. PATIENT DENIES PAIN AT THIS TIME. PATIENT RESTING QUIETLY IN BED.
[2017-12-13] MEDS: FLUTICASONE NASAL 50 MCG/ACTUATION 16 GM BTL NS SCH (09:11)
[2017-12-13] MEDS: ASCORBIC ACID 500 MG TAB PO SCH (09:12)
[2017-12-13] MEDS: amLODIPine 5 MG TAB PO SCH (09:13)
[2017-12-13] MEDS: FUROSEMIDE 40 MG TAB PO SCH (09:13)
[2017-12-13] MEDS: FERROUS SULFATE 325 MG TABEC PO SCH (09:13)
[2017-12-13] MEDS: ATORVASTATIN 20 MG TAB PO SCH (09:13)
[2017-12-13] MEDS: ATENOLOL 50 MG TAB PO SCH (09:14)
--- NOTE | 2017-12-13 09:15 | NUR ---
IV MED WAS HELD DUE TO NO IV ACCESS. INFORMED BOARD WORKER JESSENIA. WILL CONTINUE TO FOLLOW UP
[2017-12-13] MEDS: MYCOPHENOLATE 250 MG CAP PO SCH ×3 (09:21→16:40)
[2017-12-13] MEDS: predniSONE 5 MG TAB PO SCH (09:44)
[2017-12-13] MEDS: TACROLIMUS 1 MG CAP PO SCH ×2 (09:44→21:27)
--- NOTE | 2017-12-13 10:00 | NUR ---
PATIENT CONTINUES TO REST QUIETLY. PATIENT DENIES PAIN AT THIS TIME.
[2017-12-13] MEDS: NACL 0.9% 1,000 ML IV SCH ×2 (12:53→21:15)
--- NOTE | 2017-12-13 14:33 | NUR ---
RECEIVED ORDER FOR TRANSFER TO HIGHER LEVEL OF CARE. REQUESTED [facility]. SPOKE WITH LENA AT [facility], [phone]- FAXED FACE SHEET AND ORDER TO HIM AT [phone].
[2017-12-13 16:00] VITALS: BP 141/72
--- NOTE | 2017-12-13 16:00 | NUR ---
PATIENT HAVING ct COMPLETED.
--- NOTE | 2017-12-13 16:29 | NUR ---
CALLED MACARENAAMMON IN ADMITTING AT [facility], [phone]. HE SAID HE RECEIVED MY FAX WITH THE ORDER AND FACE SHEET. HE SAID HE STILL HASN'T RECEIVED A CALL FROM ANY ADMITTING PHYSICIAN. I DID SPEAK WITH DR. ANDRADE AND SHE SAID SHE SPOKE WITH DR. MCMAHON. I INFORMED PHUONG NAVADRILLING ASSISTANT NURSE TO FOLLOW UP ON THIS TRANSFER.
[2017-12-13] MEDS ORDERED: FURO40TA9 PO (16:30)
[2017-12-13] MEDS ORDERED: HEPA500056 SUBQ (16:30)
[2017-12-13] MEDS ORDERED: ROC1PM IV (16:30)
[2017-12-13] MEDS ORDERED: FLUC200T PO (16:30)
[2017-12-13] MEDS ORDERED: LACT1.4C PO (16:30)
[2017-12-13] MEDS: FAMOTIDINE 20 MG TAB PO SCH (16:40)
--- NOTE | 2017-12-13 16:40 | NUR ---
RECEIVED CALL FROM RACHAEL Monroy FROM [facility] WHO STATES URGENT CT RESULTS. NOTIFIED.
[2017-12-13] MEDS: INSULIN LISPRO SLIDING SCALE 100 UNITS/ML VIAL SUBQ PRN ×2 (16:42→21:36)
--- NOTE | 2017-12-13 18:00 | NUR ---
I CALLED [facility] SPOKE WITH CHERELLE MASTER AT [facility] ,STATED NO BED AVAILABLE AT THIS TIME WILL CALL BACK WHEN BED IS AVAILABLE . ACCEPTING DR IS DR BEY.
--- NOTE | 2017-12-13 18:52 | NUR ---
PATIENT QUIETLY EATING DINNER IN ROOM.
[2017-12-13 19:00] LABS: TACROLIMUS 1.4 ng/mL (2.0-20.0)
--- NOTE | 2017-12-13 19:30 | NUR ---
ASSUMED CARE OF PATIENT, AWAKE, ALERT AND ORIENTED. NO COMPLAINS. STABLE CONDITION. REPOSITIONED. CALL LIGHT WITHIN REACH.
--- NOTE | 2017-12-13 20:00 | NUR ---
REPOSITIONED BY BLADDER TRIMMER AND PERICARE DONE BY BLADDER TRIMMER. PLAN OF CARE DISCUSSED WITH PATIENT AND FAMILY MEMBER, VERBALIZED UNDERSTANDING WELL. CALL LIGHT WITHIN REACH. CARE BOARD UPDATED. NO COMPLAINS.
[2017-12-13] MEDS: INSULIN LANTUS 100 UNITS/ML 10 ML VIAL SUBQ SCH (21:37)
[2017-12-13 23:39] VITALS: BP 145/67
--- NOTE | 2017-12-14 | NUR ---
VITAL SIGNS STABLE. AFEBRILE. CALL LIGHT WITHIN REACH. REPOSITIONED.
[2017-12-14] MEDS: NACL 0.9% 1,000 ML IV SCH (00:29)
[2017-12-14] MEDS: BLOOD GLUCOSE MONITORING 1 DEV DEV FS SCH ×4 (06:13→20:50)
[2017-12-14 06:23] LABS: BASOPHILS % (AUTO) 0.4 % (0.0-2.0); EOSINOPHILS % (AUTO) 0.8 % (0.0-4.0); HEMATOCRIT 27.9 % (36-48); HEMOGLOBIN 8.9 g/dL (12.0-16.0); LYMPHOCYTES # (AUTO) 0.9 K/uL (2.5-16.5); LYMPHOCYTES % (AUTO) 22.8 % (20.5-51.1); MEAN CORPUSCULAR HEMOGLOBIN 28 pg (27-31); MEAN CORPUSCULAR HGB CONC 32 g/dL (33-37); MEAN CORPUSCULAR VOLUME 88.2 fL (80-94); MONOCYTES # (AUTO) 0.4 K/uL (0.8-1.0); MONOCYTES % (AUTO) 9.7 % (1.7-9.3); NEUTROPHILS # (AUTO) 2.6 K/uL (1.8-7.7); NEUTROPHILS % (AUTO) 66.3 % (42.2-75.2); PLATELET COUNT (AUTO) 183 K/uL (140-450); RED BLOOD CELL COUNT(AUTO) 3.17 MIL/uL (4.20-5.40); RED CELL DISTRIBUTION WIDTH 15.9 % (11.6-13.7)
[2017-12-14 06:44] LABS: ANION GAP 15.4 (8-16); CARBON DIOXIDE 16.4 mmol/L (21-32); CHLORIDE 115 mmol/L (98-107); GLUCOSE 91 mg/dL (74-106); POTASSIUM 3.8 mmol/L (3.5-5.1); SODIUM SERUM 143 mmol/L (136-145); UREA NITROGEN, BLOOD 35 mg/dL (7-18)
--- NOTE | 2017-12-14 07:29 | NUR ---
ENDORSED CARE AT BEDSIDE WITH CHEN NAVA, PATIENT IN STABLE CONDITION.
--- NOTE | 2017-12-14 07:30 | NUR ---
RECEIVED REPORT FROM THE SUPERVISOR FIREWORKS ASSEMBLY NURSE AT BEDSIDE FOR CONTINUITY OF CARE. PT IS AWAKE AND ORIENTED. INTRODUCED MYSELF AND UPDATED THE BOARD. PT IS MS. PT IS ON BEDREST. SKIN IS INTACT, BOLTON CATH IN PLACE. LBM IS 12/14 THIS MORNING. IV ON R FA 22G NS AT NS 120. THIS IS HER 3RD BAG. AFTER THIS, SHE WILL BE SL. PLAN FOR TODAY: TRANSFER TO [place] FOR HLOC. WAITING ON BED AVAILABILITY. V/S WITHIN NORMAL RANGE. WILL CONTINUE TO MONITOR PT.
[2017-12-14 08:00] VITALS: BP 148/72
[2017-12-14] MEDS: ATORVASTATIN 20 MG TAB PO SCH (09:14)
[2017-12-14] MEDS: ASCORBIC ACID 500 MG TAB PO SCH (09:14)
[2017-12-14] MEDS: MYCOPHENOLATE 250 MG CAP PO SCH ×3 (09:15→17:03)
[2017-12-14] MEDS: amLODIPine 5 MG TAB PO SCH (09:15)
[2017-12-14] MEDS: ATENOLOL 50 MG TAB PO SCH (09:15)
[2017-12-14] MEDS: FUROSEMIDE 40 MG TAB PO SCH (09:15)
[2017-12-14] MEDS: FERROUS SULFATE 325 MG TABEC PO SCH (09:15)
[2017-12-14] MEDS: FLUTICASONE NASAL 50 MCG/ACTUATION 16 GM BTL NS SCH (09:16)
[2017-12-14] MEDS: TACROLIMUS 1 MG CAP PO SCH ×2 (09:17→20:49)
[2017-12-14] MEDS: predniSONE 5 MG TAB PO SCH (09:20)
--- NOTE | 2017-12-14 09:28 | NUR ---
ADMINISTERED MORNING MEDS. PT TOLERATED WELL. WILL CONTINUE TO MONITOR PT.
--- NOTE | 2017-12-14 10:47 | NUR ---
SLEEPING SOUNDLY. NO SIGNS OF DISTRESS. DAUGHTER CALLED TO CHECK UP ON PT. WILL BE BY LATER. STILL AWAITING TRANSFER ORDERS TO [facility]. Addendum: 12/14/17 at 1049 by Katie Peters RN IVF STOPPED. PT SL.
--- NOTE | 2017-12-14 12:16 | NUR ---
ADMINISTERED SCHEDULED MED. PT TOLERATED WELL. WILL CONTINUE TO MONITOR PT.
--- NOTE | 2017-12-14 14:01 | NUR ---
CM NOTE PER CESIA FROM [facility] ADMITTING, BED PLACEMENT STILL PENDING FOR PATIENT.
--- NOTE | 2017-12-14 14:22 | NUR ---
PT RESTING COMFORTABLY. NO SIGNS OF DISTRESS. WILL CONTINUE TO MONITOR PT.
[2017-12-14 16:00] VITALS: BP 128/66
[2017-12-14] MEDS: FAMOTIDINE 20 MG TAB PO SCH (17:03)
--- NOTE | 2017-12-14 17:05 | NUR ---
ADMINISTERED SCHEDULED MED. PT TOLERATED WELL. WILL CONTINUE TO MONITOR PT.
--- NOTE | 2017-12-14 19:15 | NUR ---
ENDORSED PT TO THE MOLD COOLER NURSE AT BEDSIDE FOR CONTINUITY OF CARE. PT IS IN STABLE CONDITION.
--- NOTE | 2017-12-14 19:16 | NUR ---
RECEIVED REPORT FROM DAY SHIFT NURSE FOR CONTINUITY OF CARE. PT AWAKE AO X2. IV NOTED ON RFA 22G SALINE LOCK. NO SOB, NO S/S OF DISTRESS. BED LOWERED CALL LIGHT WITHIN REACH. WILL CONTINUE TO MONITOR.
[2017-12-14] MEDS: INSULIN LANTUS 100 UNITS/ML 10 ML VIAL SUBQ SCH (20:47)
[2017-12-14] MEDS: INSULIN LISPRO SLIDING SCALE 100 UNITS/ML VIAL SUBQ PRN (20:59)
[2017-12-15 00:04] VITALS: BP 136/66
--- NOTE | 2017-12-15 00:12 | NUR ---
PT IS AWAKE AND RESTING WATCHING TV NO SOB. NO S/S OF DISTRESS. ON RA. WILL CONTINUE TO MONITOR.
--- NOTE | 2017-12-15 02:37 | NUR ---
PT IS SLEEPING. NO SOB, NO S/S OF DISTRESS. PT ON RA. WILL CONTINUE TO MONITOR.
[2017-12-15 04:00] VITALS: BP 143/70
--- NOTE | 2017-12-15 05:07 | NUR ---
ASSESSED PT PT IS ASLEEP. EASILY AROUSE AND AOX3. NO SOB NO S/S OF DISTRESS.
[2017-12-15] MEDS: BLOOD GLUCOSE MONITORING 1 DEV DEV FS SCH ×4 (06:36→20:23)
--- NOTE | 2017-12-15 07:32 | NUR ---
GAVE REPORT TO DAY SHIFT NURSE FOR CONTINUITY OF CARE.
--- NOTE | 2017-12-15 07:33 | NUR ---
RECEIVED REPORT FROM PROCESS IMPROVEMENT SPECIALIST NURSE AT BEDSIDE FOR CONTINUITY OF CARE. PT IS AWAKE AND ORIENTED. PT IS STABLE. NO SIGNS OF DISTRESS. IV ON R FA 22F SL. LBM 12/14. BOLTON CATH IN PLACE. STRICT I&O. SKIN INTACT. WILL CONTINUE TO MONITOR PT.
[2017-12-15 08:00] VITALS: BP 153/68
[2017-12-15] MEDS ORDERED: FLUCONAZOLE 100 MG TAB PO SCH (09:00)
[2017-12-15] MEDS: amLODIPine 5 MG TAB PO SCH (09:34)
[2017-12-15] MEDS: ATENOLOL 50 MG TAB PO SCH (09:34)
[2017-12-15] MEDS: ATORVASTATIN 20 MG TAB PO SCH (09:35)
[2017-12-15] MEDS: FERROUS SULFATE 325 MG TABEC PO SCH (09:35)
[2017-12-15] MEDS: ASCORBIC ACID 500 MG TAB PO SCH (09:35)
[2017-12-15] MEDS: MYCOPHENOLATE 250 MG CAP PO SCH ×3 (09:35→17:12)
[2017-12-15] MEDS: FUROSEMIDE 40 MG TAB PO SCH (09:36)
[2017-12-15] MEDS: predniSONE 5 MG TAB PO SCH (09:36)
[2017-12-15] MEDS: TACROLIMUS 1 MG CAP PO SCH ×2 (09:37→20:47)
[2017-12-15] MEDS: FLUTICASONE NASAL 50 MCG/ACTUATION 16 GM BTL NS SCH (09:38)
--- NOTE | 2017-12-15 09:45 | NUR ---
ADMINISTERED MORNING MEDS. PT TOLERATED WELL. NO SIGNS OF DISTRESS. NO COMPLAINTS. WILL CONTINUE TO MONITOR PT.
--- NOTE | 2017-12-15 12:25 | NUR ---
CALLED [facility] AND SPOKE WITH LENA HE SAID THAT THEY STILL DON'T HAVE AN ACCEPTING PHYSICIAN. I INFORMED DR. ANDRADE THIS AM. SAW THAT ON 12/13 THERE WAS A NOTE THAT DR. BEY WILL BE THE ACCEPTING PHYSICIAN. I CALLED [facility] AND INFORMED LENA. HE SAID THE WOULD GET IN TOUCH WITH THE
--- NOTE | 2017-12-15 12:35 | NUR ---
CALLED LENA FROM [facility] AND HE SAID HE SAW DR. BEY AND SHE SAID THAT SHE IS NOT IMAGING SERVICES DIRECTOR TODAY AND TO HAVE OUR DOCTOR CALL DR. ANDRES, . I CALLED DR. ANDRADE AND INFORMED HER. SHE SAID SHE SPOKE WITH DR. MCMAHON AND HE ALREADY INFORMED HER TO CALL DR. ANDRES.
--- NOTE | 2017-12-15 14:37 | NUR ---
12/15/2017 RD FOLLOW UP COMPLETED *CONTINUED 1. INCREASED ENERGY NEEDS R/T RENAL DYSFUNCTION A/E/B PT RENAL TRANSPLANT 2002 *CONTINUED 2. IMPAIRED NUTRIENT UTILIZATION R/T ENDOCRINE DYSFUNCTION A/E/B PT HX DM *CONTINUED 3. BITING/CHEWING DIFFICULTY R/T PATHOPHYSIOLOGICAL CONDTIONS A/E/B EDENTULISM *CONTINUED 4. ALTERED NUTRITION RELATED LAB VALUSE R/T RENAL DYSFUNCTION A/E/B ELEVATED BUN (35), ELEVATED CREATININE (3) [address]
[2017-12-15 16:00] VITALS: BP 138/63
--- NOTE | 2017-12-15 16:12 | NUR ---
CALLED ADMITTING AT [facility] AND SPOKE WITH NANCY. SHE SAID THEY HAVE AN ADMITTING PHYSICIAN AND ALL THEY ARE WAITING FOR IS A BED. I GAVE THEM THE PHONE NUMBER TO THE FLOOR TO CALL IF THEY GET A BED.
[2017-12-15] MEDS: FAMOTIDINE 20 MG TAB PO SCH (17:11)
[2017-12-15] MEDS: cefTRIAXone 2,000 MG in DEXTROSE 5% 100 ML IV SCH (17:12)
--- NOTE | 2017-12-15 17:20 | NUR ---
ADMINISTERED AFTERNOON MEDS. PT TOLERATED WELL. WILL CONTINUE TO MONITOR PT.
--- NOTE | 2017-12-15 17:55 | NUR ---
PT'S IV INFILTRATED. ATTEMPTED TO RESTART IV. 2 ATTEMPTS. WILL ASK CHARGE NURSE TO TRY AND START A NEW IV.
--- NOTE | 2017-12-15 19:07 | NUR ---
CHARGE NURSE WAS UNABLE TO START A NEW IV. WILL ASK CIGARETTE MACHINE FILLER TO TRY. ROCEPHIN IS STILL HANGING. WILL ENDORSE TO CIGARETTE MACHINE FILLER NURSE.
--- NOTE | 2017-12-15 19:20 | NUR ---
ENDORSED PT TO THE MOTEL OPERATOR NURSE AT BEDSIDE FOR CONTINUITY OF CARE. PT IS IN STABLE CONDITION.
--- NOTE | 2017-12-15 19:30 | NUR ---
RECEIVED REPORT AT BEDSIDE FOR CONTINUITY OF CARE. PT IS AWAKE ALERT X2. PT ABLE TO AMBULATE. NO IV LINE NOTED AT THIS TIME. PT HAS NO SOB NO S/S OF DISTRESS. BED LOWERED, CALL LIGHT WITHIN REACH WILL CONTINUE TO MONITOR.
--- NOTE | 2017-12-15 20:29 | NUR ---
ATTEMPTED TO GET NEW IV STARTED BY CHARGE NURSE AND UNABLE, ALSO DAYSHIFT ATTEMPTED 3X AND FAILED. SPOKE TO SABINE IN ER SHE WILL TRY TO START IV.
[2017-12-15] MEDS: INSULIN LISPRO SLIDING SCALE 100 UNITS/ML VIAL SUBQ PRN (20:49)
[2017-12-15] MEDS: INSULIN LANTUS 100 UNITS/ML 10 ML VIAL SUBQ SCH (20:50)
[2017-12-15 22:00] VITALS: BP 152/71
--- NOTE | 2017-12-16 02:59 | NUR ---
PT IS SLEEPING WILL CONTINUE TO MONITOR.
--- NOTE | 2017-12-16 05:32 | NUR ---
ASSESSED PT IS ASLEEP RESTING NO SOB NO S/S OF DISTRESS. WILL CONTINUE TO MONITOR.
[2017-12-16] MEDS: BLOOD GLUCOSE MONITORING 1 DEV DEV FS SCH ×4 (06:05→21:37)
--- NOTE | 2017-12-16 07:27 | NUR ---
GAVE PT REPORT TO DAYSHIFT NURSE AT BEDSIDE FOR CONTINUITY OF CARE.
--- NOTE | 2017-12-16 07:28 | NUR ---
RECEIVED REPORT FROM STREET PHOTOGRAPHER NURSE AT BEDSIDE FOR CONTINUITY OF CARE. PATIENT AWAKE AND ALERT, ABLE TO AMBULATE WITH ASSIST, HAS BEDSIDE COMMODE. RESPIRATIONS EVEN AND UNLABORED. NO DISTRESS OR SOB NOTED ON ROOM AIR. IV INTACT, PATENT, AND ASYMPTOMATIC, INFUSING IV WELL. UPDATED BOARD. UPDATED PATIENT WITH PLAN OF CARE. PATIENT VERBALIZED UNDERSTANDING. SAFETY PRECAUTION IN PLACE, BED ON LOWEST SETTING, BED ALARM ON, CALL LIGHT WITHIN REACH, WILL CONTINUE TO MONITOR PATIENT.
[2017-12-16 08:00] VITALS: BP 152/71
[2017-12-16 08:58] LABS: RED BLOOD CELL COUNT(AUTO) 3.51 MIL/uL (4.20-5.40)
[2017-12-16 09:30] LABS: HEMATOCRIT 31.6 % (36-48); HEMOGLOBIN 9.8 g/dL (12.0-16.0); MEAN CORPUSCULAR HEMOGLOBIN 28 pg (27-31); MEAN CORPUSCULAR HGB CONC 31 g/dL (33-37); MEAN CORPUSCULAR VOLUME 89.9 fL (80-94); PLATELET COUNT (AUTO) 229 K/uL (140-450); RED CELL DISTRIBUTION WIDTH 16.6 % (11.6-13.7)
[2017-12-16 09:35] LABS: ANION GAP 15.3 (8-16); CARBON DIOXIDE 17.3 mmol/L (21-32); CHLORIDE 113 mmol/L (98-107); CREATININE 3.3 mg/dL (0.6-1.3); GLUCOSE 180 mg/dL (74-106); POTASSIUM 3.6 mmol/L (3.5-5.1); SODIUM SERUM 142 mmol/L (136-145); UREA NITROGEN, BLOOD 45 mg/dL (7-18)
[2017-12-16 09:56] LABS: EOSINOPHILS % (MANUAL) 1 % (0-4); LYMPHOCYTES % (MANUAL) 25 % (20-46); MONOCYTES % (MANUAL) 11 % (5-12)
--- NOTE | 2017-12-16 10:11 | NUR ---
CALLED [facility] SPOKE WITH LENA HE STATED HE FAXED THE TRANSFER BACK AGREEMENT TO [facility] FAX # [phone] WHEN I CHECKED THERE IS NO DOCUMENTATION AND I ASKED HIM TO FAX IT AGAIN TO [facility] [phone] WAITING FOR THE FAX
[2017-12-16] MEDS: FLUTICASONE NASAL 50 MCG/ACTUATION 16 GM BTL NS SCH (10:13)
[2017-12-16] MEDS: ASCORBIC ACID 500 MG TAB PO SCH (10:14)
[2017-12-16] MEDS: FERROUS SULFATE 325 MG TABEC PO SCH (10:14)
[2017-12-16] MEDS: TACROLIMUS 1 MG CAP PO SCH ×2 (10:15→21:37)
[2017-12-16] MEDS: predniSONE 5 MG TAB PO SCH (10:15)
[2017-12-16] MEDS: FUROSEMIDE 40 MG TAB PO SCH (10:15)
[2017-12-16] MEDS: ATORVASTATIN 20 MG TAB PO SCH (10:16)
[2017-12-16] MEDS: MYCOPHENOLATE 250 MG CAP PO SCH ×3 (10:16→17:57)
[2017-12-16] MEDS: ATENOLOL 50 MG TAB PO SCH (10:17)
[2017-12-16] MEDS: amLODIPine 5 MG TAB PO SCH (10:17)
--- NOTE | 2017-12-16 10:21 | NUR ---
ADMINISTERED ORDERED MEDICATIONS. PATIENT TOLERATED THEM WELL. PATIENT RESTING IN BED, NO SIGNS OF DISTRESS OR SOB NOTED ON ROOM AIR, PATIENT DENIES PAIN. SAFETY PRECAUTION IN PLACE, BED ON LOWEST SETTING, BED ALARM ON, CALL LIGHT WITHIN REACH, WILL CONTINUE TO MONITOR PATIENT.
--- NOTE | 2017-12-16 10:54 | NUR ---
PER LARRY'S PERMISSION ,WITH PHYSICAL THERAPY DIRECTOR BECKY CHECKED [facility] AND I FOUND THE TRANSFER AGREEMENT FAXED TO [phone] LENA STATED IT IS ANOTHER FAX NUMBER AND HE DIDN'T RECEIVE IT. HE GAVE ME THIS FAX# [phone] WAITING FOR LENA RESPONSE
--- NOTE | 2017-12-16 12:20 | NUR ---
ADMINISTERED ORDERED MEDICATION. PATIENT TOLERATED IT WELL. PATIENT RESTING IN BED EATING LUNCH, BLOOD SUGAR 144, NO COVERAGE NEEDED. NO SIGNS OF DISTRESS OR SOB NOTED ON ROOM AIR, PATIENT DENIES PAIN. SAFETY PRECAUTION IN PLACE, BED ON LOWEST SETTING, BED ALARM ON, CALL LIGHT WITHIN REACH, WILL CONTINUE TO MONITOR PATIENT.
[2017-12-16 16:00] VITALS: BP 139/63
[2017-12-16] MEDS: cefTRIAXone 2,000 MG in DEXTROSE 5% 100 ML IV SCH (17:56)
[2017-12-16] MEDS: FAMOTIDINE 20 MG TAB PO SCH (17:56)
--- NOTE | 2017-12-16 17:57 | NUR ---
ADMINISTERED ORDERED MEDICATION. PATIENT TOLERATED IT WELL. PATIENT RESTING IN BED EATING DINNER, BLOOD SUGAR 168, COVERAGE GIVEN. NO SIGNS OF DISTRESS OR SOB NOTED ON ROOM AIR, PATIENT DENIES PAIN. SAFETY PRECAUTION IN PLACE, BED ON LOWEST SETTING, BED ALARM ON, CALL LIGHT WITHIN REACH, WILL CONTINUE TO MONITOR PATIENT.
[2017-12-16] MEDS: INSULIN LISPRO SLIDING SCALE 100 UNITS/ML VIAL SUBQ PRN ×2 (18:02→21:48)
--- NOTE | 2017-12-16 19:35 | NUR ---
REPORT GIVEN TO VICE PRESIDENT OF COMPLIANCE NURSE AT BEDSIDE FOR CONTINUITY OF CARE. PATIENT IN STABLE CONDITION.
--- NOTE | 2017-12-16 19:36 | NUR ---
RECD. RESTING IN BED, AWAKE, A/OX4. RESPIRATION EVEN AND UNLABORED. IV OF NS AT TKO INFUSING, LEFT THUMB G22. VERBALIZED SHE HAS NO DIARRHEA. F/C PATENT DRAINING CLEAR, YELLOW URINE. SAFETY MEASURES ENFORCED. BED ON ALARM, CALL LIGHT IN REACH. PLAN OF CARE FOR THE SHIFT DISCUSSED. VERBALIZED UNDERSTANDING. DENIES PAIN 0/10.
--- NOTE | 2017-12-16 19:36 | NUR ---
Patient's Plan of Care was discussed and reviewed with NUVIA: [id number]
[2017-12-16] MEDS: INSULIN LANTUS 100 UNITS/ML 10 ML VIAL SUBQ SCH (21:41)
--- NOTE | 2017-12-16 21:45 | NUR ---
SNACK GIVEN FOR THE NIGHT, ATE 100%. DUE PO MEDICATIONS GIVEN.
[2017-12-17] VITALS: BP 135/60
--- NOTE | 2017-12-17 | NUR ---
SLEEPING COMFORTABLY IN BED.
--- NOTE | 2017-12-17 02:38 | NUR ---
STILL SLEEPING COMFORTABLY, ENDORSED TO ELIJAH DIAMOND FOR CONTINUITY OF CARE.
--- NOTE | 2017-12-17 02:39 | NUR ---
PATIENT ASLEEP IN BED. NO S/S OF DISTRESS NOTED
[2017-12-17 04:59] VITALS: BP 120/66
[2017-12-17] MEDS: BLOOD GLUCOSE MONITORING 1 DEV DEV FS SCH ×2 (06:12→11:30)
--- NOTE | 2017-12-17 07:25 | NUR ---
PATIENT REPORT GIVEN AT BEDSIDE. PATIENT ENDORSED IN STABLE CONDITION
--- NOTE | 2017-12-17 08:00 | NUR ---
INITIAL ASSESSMENT PERFORMED. PATIENT ALERT AND ABLE TO MAKE NEEDS KNOWN. NO ACUTE DISTRESS NOTED. LUNG SOUNDS CLEAR. BOWEL SOUNDS ACTIVE. LBM YESTERDAY PER PATIENT. FC PATENT AND INTACT.BLE WITH +1 EDEMA. PT WEARS ADULT BRIEFS. SKIN INTACT.IV SITE TO RIGHT THUMB 22G SL. PATIENT ON 1500CC/24HR FLUID RESTRICTION . PATIENT ON CCHO DIET. TOLERATING WELL. PATIENT WITH LEFT ARM SHUNT THAT IS NOT FUNCTIONAL. PATIENT PLAN OF CARE DISCUSSED WITH PATIENT . PATIENT VERBALIZED UNDERSTANDING AND AGREEMENT. ORIENTED PATIENT TO ROOM. CALL LIGHT WITHIN REACH. WILL CONT TO MONITOR.
[2017-12-17] MEDS: FUROSEMIDE 40 MG TAB PO SCH (09:00)
--- NOTE | 2017-12-17 09:11 | NUR ---
CALLED [facility] , SPOKE WITH [facility] ADMITTING REGARDING TRANSFER PT WILL CHECK THE BED COORDINATOR AND WILL CALL BACK
[2017-12-17] MEDS: predniSONE 5 MG TAB PO SCH (09:15)
[2017-12-17] MEDS: ATORVASTATIN 20 MG TAB PO SCH (09:15)
[2017-12-17] MEDS: FERROUS SULFATE 325 MG TABEC PO SCH (09:15)
[2017-12-17] MEDS: amLODIPine 5 MG TAB PO SCH (09:16)
[2017-12-17] MEDS: ATENOLOL 50 MG TAB PO SCH (09:16)
[2017-12-17] MEDS: ASCORBIC ACID 500 MG TAB PO SCH (09:17)
[2017-12-17] MEDS: TACROLIMUS 1 MG CAP PO SCH (09:17)
[2017-12-17] MEDS: MYCOPHENOLATE 250 MG CAP PO SCH (09:18)
[2017-12-17] MEDS: FLUTICASONE NASAL 50 MCG/ACTUATION 16 GM BTL NS SCH (09:18)
--- NOTE | 2017-12-17 10:14 | NUR ---
SOFI FROM [facility] CALLED BACK AND PATIENT CAN GO TO ROOM 178 A BUT THEY WANT PATIENT TO BE THERE AFTER [address] ANDRADE AND ELIJAH DEL ANGEL AWARE
--- NOTE | 2017-12-17 10:15 | NUR ---
SPOKE WITH DR ANDRADE REGARDING PATIENTS LASIX ORDERS AND DR SAGASTUME NOTES TO HOLD LASIX. DR ANDRADE AGREED . LASIX HELD.
--- NOTE | 2017-12-17 10:15 | NUR ---
PATIENT INFORMED OF DISCHARGE TO [facility]. PATIENT VERBALIZED UNDERSTANDING AND AGREEMENT. DAUGHTER LULY MADE AWARE AND IN AGREEMENT.
--- NOTE | 2017-12-17 10:31 | NUR ---
TRANSPORT ARRANGED WITH NIALL FABIAN ,RECEPTION INTERVIEWER TIME 1200 NOON .RN AWARE
[2017-12-17] MEDS ORDERED: CEFT2PDS66 IV (11:25)
--- NOTE | 2017-12-17 12:20 | NUR ---
[facility] ARRIVED. REPORT GIVEN TO EMT. ALSO CALLED SUHA FROM [facility] TO GIVE REPORT. PATIENT TRANSFERRED TO [facility] WITHOUT DIFFICULTIES.PATIENT TO TRANSFER TO [facility]. ID BAND REMOVED. IV SITE TO RIGHT THUMB 22G PATENT AND INTACT. ALL DISCHARGE ORDERS GIVEN TO EMT AND SUHA FROM [facility].
== END 2017-12-17 12:20 | disposition short-term general hospital (02) | DRG 682 ==
LOC: MED 15:37 → MTU 18:08
PROVIDERS: ADMIT Family Medicine; ATTEND Family Medicine
DX: N17.0 Acute kidney failure with tubular necrosis (principal); E43 Unspecified severe protein-calorie malnutrition; E11.65 Type 2 diabetes mellitus with hyperglycemia; D68.59 Other primary thrombophilia; E11.51 Type 2 diabetes mellitus with diabetic peripheral angiopathy without gangrene; E11.22 Type 2 diabetes mellitus with diabetic chronic kidney disease; R18.8 Other ascites; Z94.0 Kidney transplant status; I13.0 Hypertensive heart and chronic kidney disease with heart failure and stage 1 through stage 4 chronic kidney disease, or unspecified chronic kidney disease; I42.2 Other hypertrophic cardiomyopathy; M46.46 Discitis, unspecified, lumbar region; K52.9 Noninfective gastroenteritis and colitis, unspecified; M48.061 Spinal stenosis, lumbar region without neurogenic claudication; E86.0 Dehydration; N30.80 Other cystitis without hematuria; I16.0 Hypertensive urgency; K80.20 Calculus of gallbladder without cholecystitis without obstruction; E11.69 Type 2 diabetes mellitus with other specified complication; E83.42 Hypomagnesemia; D63.8 Anemia in other chronic diseases classified elsewhere; E78.5 Hyperlipidemia, unspecified; K21.9 Gastro-esophageal reflux disease without esophagitis; D72.819 Decreased white blood cell count, unspecified; K44.9 Diaphragmatic hernia without obstruction or gangrene; N94.89 Other specified conditions associated with female genital organs and menstrual cycle; E02 Subclinical iodine-deficiency hypothyroidism; I25.10 Atherosclerotic heart disease of native coronary artery without angina pectoris; T45.1X5A Adverse effect of antineoplastic and immunosuppressive drugs, initial encounter; N18.9 Chronic kidney disease, unspecified; I45.10 Unspecified right bundle-branch block; I50.9 Heart failure, unspecified; Z88.1 Allergy status to other antibiotic agents; Z91.011 Allergy to milk products; Z91.018 Allergy to other foods; Z79.899 Other long term (current) drug therapy; Z79.4 Long term (current) use of insulin; Z90.710 Acquired absence of both cervix and uterus; Z98.49 Cataract extraction status, unspecified eye; Z68.25 Body mass index [BMI] 25.0-25.9, adult; Y92.89 Other specified places as the place of occurrence of the external cause; Z80.41 Family history of malignant neoplasm of ovary
CPT/HCPCS: 36415; 71045; 76705; 80048; 80053; 81001; 82009; 82150; 82948; 83036; 83690; 83735; 83880; 84100; 84439; 84443; 84484; 85025; 85610; 85651; 85730; 86140; 87081; 87086; 93005; 93970; 96374; 96375; 97140; 97535; 99285; C1758; J0696; J1644; J1815; J2185; J2405; J3475; J3490; J7030; J7060; J7507; J7512; J7517; Q0092